=== PATIENT | male | born 1945 | race Caucasian/White ===

== ENCOUNTER 2019-10-08 11:29 | Emergency (ER) | payer MEDICARE ==
--- NOTE | 2019-10-08 11:35 | ERPHSYRPT ---
- History of Present Illness Time Seen by Provider: 10/08/19 11:35 Source: patient, family Exam Limitations: no limitations Physician History: 74 y/o white male, with h/o cabg 8 years ago in [place], presents with approx 1 week h/o soa. worse last 2 days. last pm noticed heart racing. worse this am. pt denies cp, denies n/v/d. pt denies abd pain. pts rn urology is dr. cardenas. Timing/Duration: week(s) Activities at Onset: none Severity of Dyspnea-Max: moderate Severity of Dyspnea-Current: moderate Possible Cause: no prior episodes Associated Symptoms: No chest pain/discomfort International travel in last 2 weeks: No Allergies/Adverse Reactions: Sulfa (Sulfonamide Antibiotics) Allergy (Verified 10/08/19 11:40) - Review of Systems Constitutional: Weakness Eyes: No Symptoms Ears, Nose, & Throat: No Symptoms Respiratory: Dyspnea, No Stridor, No Wheezing Cardiac: No Symptoms, No Chest Pain, No Palpitations, No Syncope Abdominal/Gastrointestinal: No Symptoms Genitourinary Symptoms: No Symptoms Musculoskeletal: No Symptoms Skin: No Symptoms Neurological: No Symptoms Psychological: No Symptoms Endocrine: No Symptoms Hematologic/Lymphatic: No Symptoms Immunological/Allergic: No Symptoms All Other Systems: Reviewed and Negative - Past Medical History Neurological History: No Pertinent History ENT History: No Pertinent History Cardiac History: No Pertinent History Respiratory History: No Pertinent History Endocrine Medical History: No Pertinent History Musculoskeletal History: No Pertinent History GI Medical History: No Pertinent History History: No Pertinent History Psycho-Social History: No Pertinent History Male Reproductive Disorders: No Pertinent History - Past Surgical History Neuro Surgical History: No Pertinent History Cardiac: No Pertinent History Respiratory: No Pertinent History Gastrointestinal: No Pertinent History Genitourinary: No Pertinent History Male Surgical History: No Pertinent History - Nursing Vital Signs Nursing Vital Signs: Initial Vital Signs Temperature 97.9 F 10/08/19 11:32 Pulse Rate 155 H 10/08/19 11:32 Respiratory Rate 16 10/08/19 11:32 Blood Pressure 139/95 10/08/19 11:32 O2 Sat by Pulse Oximetry 97 10/08/19 11:32 Pain Scale Pain Intensity 0 - Physical Exam General Appearance: mild distress, alert, anxiety Eye Exam: PERRL/EOMI, eyes nml inspection Ears, Nose, Throat Exam: hearing grossly normal, normal ENT inspection Neck Exam: normal inspection, non-tender, supple, full range of motion Respiratory Exam: normal breath sounds, lungs clear, airway intact, No chest tenderness, No respiratory distress Cardiovascular/Chest Exam: normal heart sounds, tachycardia Abdominal/Gastrointestinal Exam: soft, normal bowel sounds, No tenderness Rectal Exam: not done Extremity Exam: non-tender, normal range of motion, normal inspection Neurologic Exam: alert, oriented x 3, cooperative, alliance manager II-XII nml as tested Skin Exam: normal color, warm, dry Lymphatic Exam: No adenopathy SpO2 Interpretation: normal O2 Delivery: Room Air - Course Nursing assessment & vital signs reviewed: Yes EKG Interpreted by Me: RATE (155), Sinus Tach, NORMAL AXIS, NORMAL INTERVALS, NORMAL QRS, Other (no comparison) Ordered Tests: Active Orders 24 hr Category Date Time Status Slot Host STAT Care 10/08/19 11:39 Active EKG-ER Only STAT Care 10/08/19 11:37 Active IV Insertion STAT Care 10/08/19 11:37 Active Oxygen-ED Only Nasal Cannula 2 lpm Care 10/08/19 12:13 Active Pulse Oximetry (ED) STAT Care 10/08/19 11:37 Active CHEST 1 VIEW (PORTABLE) Stat Exams 10/08/19 11:38 Completed CHEST WITH CONTRAST [CT] Stat Exams 10/08/19 12:59 Completed CBC W DIFF Stat Lab 10/08/19 11:47 Completed CMP Stat Lab 10/08/19 11:47 Completed D-DIMER QUANTITATION Stat Lab 10/08/19 11:47 Completed NT PRO BNP Stat Lab 10/08/19 11:47 Completed PROTIME WITH INR Stat Lab 10/08/19 11:47 Completed TROPONIN Q3H Lab 10/08/19 11:47 Completed TROPONIN Q3H Lab 10/08/19 14:45 Ordered TROPONIN Q3H Lab 10/08/19 17:45 Ordered TROPONIN Q3H Lab 10/08/19 20:45 Ordered TROPONIN Q3H Lab 10/08/19 23:45 Ordered Medication Summary Generic Name Dose Route Start Last Admin Trade Name Freq PRN Reason Stop Dose Admin Diltiazem HCl 100 mls @ 5 mls/hr 10/08/19 12:04 10/08/19 12:08 Cardizem Drip 100 Mg/100 Ml D5w IV 11/07/19 12:03 10 mg/hr .Q20H PRN 10 mls/hr HEART RATE/ A-FIB Administration Protocol 5 MG/HR Sodium Chloride 1,000 mls @ 50 mls/hr 10/08/19 13:00 10/08/19 13:10 Sodium Chloride 0.9% 1000 Ml IV 11/07/19 12:59 50 mls/hr .Q20H BRAIN Administration Discontinued Medications Generic Name Dose Route Start Last Admin Trade Name Freq PRN Reason Stop Dose Admin Adenosine Confirm 10/08/19 11:45 Adenocard Iv 6 Mg/2 Ml Administered 10/08/19 11:46 Dose 6 mg IV .STK-MED ONE Adenosine Confirm 10/08/19 11:49 Adenocard Iv 6 Mg/2 Ml Administered 10/08/19 11:50 Dose 12 mg IV .STK-MED ONE Adenosine Confirm 10/08/19 11:51 Adenocard Iv 6 Mg/2 Ml Administered 10/08/19 11:52 Dose 12 mg IV .STK-MED ONE Adenosine 6 mg 10/08/19 11:54 10/08/19 11:58 Adenocard Iv 6 Mg/2 Ml IV 10/08/19 11:55 6 mg STAT ONE Administration Adenosine 12 mg 10/08/19 11:55 10/08/19 11:59 Adenocard Iv 6 Mg/2 Ml IV 10/08/19 11:56 12 mg STAT ONE Administration Adenosine 12 mg 10/08/19 11:55 10/08/19 11:59 Adenocard Iv 6 Mg/2 Ml IV 10/08/19 11:56 12 mg STAT ONE Administration Aspirin Confirm 10/08/19 11:40 Baby Aspirin 81 Mg Chew Administered 10/08/19 11:41 Dose 324 mg .ROUTE .STK-MED ONE Aspirin 243 mg 10/08/19 11:41 10/08/19 11:43 Baby Aspirin 81 Mg Chew PO 10/08/19 11:42 243 mg STAT ONE Administration Diltiazem HCl 25 mg 10/08/19 11:56 10/08/19 11:59 Cardizem Iv 50 Mg/10 Ml IV 10/08/19 11:57 25 mg STAT ONE Administration Diltiazem HCl Confirm 10/08/19 11:55 Cardizem Iv 50 Mg/10 Ml Administered 10/08/19 11:56 Dose 50 mg IV .STK-MED ONE Sodium Chloride Confirm 10/08/19 11:45 Sodium Chloride 0.9% 1000 Ml Administered 10/08/19 11:46 Dose 1,000 mls @ ud .ROUTE .STK-MED ONE Metoprolol Tartrate Confirm 10/08/19 11:37 Lopressor 5 Mg/5 Ml Injection Administered 10/08/19 11:38 Dose 5 mg IV .STK-MED ONE Metoprolol Tartrate 5 mg 10/08/19 11:37 10/08/19 11:42 Lopressor 5 Mg/5 Ml Injection IV 10/08/19 11:38 5 mg STAT ONE Administration Lab/Rad Data: Laboratory Result Diagrams 10/08/19 11:47 10/08/19 11:47 Laboratory Results 10/08/19 10/08/19 10/08/19 Range/Units 11:47 11:47 11:47 WBC (4.0-10.5) K/mm3 RBC (4.1-5.6) M/mm3 Hgb (12.5-18.0) gm/dl Hct (42-50) % MCV (78-100) fl MCH (26-32) pg MCHC (32-36) g/dl RDW (11.5-14.0) % Plt Count (150-450) K/mm3 MPV (6-9.5) fl Gran % (36.0-66.0) % Eos # (Auto) (0-0.5) Absolute Lymphs (auto) (1.0-4.6) Absolute Monos (auto) (0.0-1.3) Lymphocytes % (24.0-44.0) % Monocytes % (0.0-12.0) % Eosinophils % (0.00-5.0) % Basophils % (0.0-0.4) % Absolute Granulocytes (1.4-6.9) Basophils # (0-0.4) PT 13.9 H (8.83-12.87) SECONDS INR 1.23 (0.8-3.0) D-Dimer 652 H* (215-500) ng/mL Sodium 142 (137-145) mmol/L Potassium 4.6 (3.5-5.1) mmol/L Chloride 105 (98-107) mmol/L Carbon Dioxide 24 (22-30) mmol/L Anion Gap 17.3 H (5-15) MEQ/L BUN 24 H (9-20) mg/dL Creatinine 1.24 (0.66-1.25) mg/dL Estimated GFR > 60.0 ML/MIN Glucose 257 H (74-106) mg/dL Calcium 10.0 (8.4-10.2) mg/dL Total Bilirubin 0.70 (0.2-1.3) mg/dL AST 29 (17-59) U/L ALT 32 (0-50) U/L Alkaline Phosphatase 70 (38-126) U/L Troponin I 0.022 (0.000-0.034) ng/mL NT-Pro-B Natriuret Pep 1650 (0-1800) pg/mL Serum Total Protein 7.4 (6.3-8.2) g/dL Albumin 4.2 (3.5-5.0) g/dL 10/08/19 Range/Units 11:47 WBC 7.8 (4.0-10.5) K/mm3 RBC 4.76 (4.1-5.6) M/mm3 Hgb 13.8 (12.5-18.0) gm/dl Hct 43.5 (42-50) % MCV 91.4 (78-100) fl MCH 29.0 (26-32) pg MCHC 31.7 L (32-36) g/dl RDW 14.0 (11.5-14.0) % Plt Count 326 (150-450) K/mm3 MPV 9.4 (6-9.5) fl Gran % 65.2 (36.0-66.0) % Eos # (Auto) 0.09 (0-0.5) Absolute Lymphs (auto) 1.92 (1.0-4.6) Absolute Monos (auto) 0.66 (0.0-1.3) Lymphocytes % 24.8 (24.0-44.0) % Monocytes % 8.5 (0.0-12.0) % Eosinophils % 1.2 (0.00-5.0) % Basophils % 0.3 (0.0-0.4) % Absolute Granulocytes 5.06 (1.4-6.9) Basophils # 0.02 (0-0.4) PT (8.83-12.87) SECONDS INR (0.8-3.0) D-Dimer (215-500) ng/mL Sodium (137-145) mmol/L Potassium (3.5-5.1) mmol/L Chloride (98-107) mmol/L Carbon Dioxide (22-30) mmol/L Anion Gap (5-15) MEQ/L BUN (9-20) mg/dL Creatinine (0.66-1.25) mg/dL Estimated GFR ML/MIN Glucose (74-106) mg/dL Calcium (8.4-10.2) mg/dL Total Bilirubin (0.2-1.3) mg/dL AST (17-59) U/L ALT (0-50) U/L Alkaline Phosphatase (38-126) U/L Troponin I (0.000-0.034) ng/mL NT-Pro-B Natriuret Pep (0-1800) pg/mL Serum Total Protein (6.3-8.2) g/dL Albumin (3.5-5.0) g/dL - Progress Progress: improved Air Movement: good Progress Note: 10/08/19 12:12 pt given adenosine 6mg, 12mg then repeat 12mg iv. sl slowed hr to see underlying atrial flutter. cardizem 25mg iv followed by cardizem drip improved hr to 102. pt maintained a normal bp throughout. pt denies cp. soa improved. 10/08/19 14:35 spoke with pts rn urology, dr. cardenas. i reviewed pts hx, sx, lab and xray results. he and pt agree to transfer pt to [facility]. awaiting call back from transfer center Blood Culture(s) Obtained: No Antibiotics given: No Counseled pt/family regarding: lab results, diagnosis, need for follow-up, rad results - Departure Departure Disposition: Transfer Clinical Impression: Atrial flutter with rapid ventricular response Condition: Fair Critical Care Time: Yes Critical Care Time(excluding separately billable procedures): Critical 30-74 mins Referrals: MADELINE GARRISON [Primary Care Provider] -
[2019-10-08] MEDS ORDERED: LOPRESSOR 5 MG/5 ML INJECTION IV ONE ×2 (11:37)
[2019-10-08] MEDS ORDERED: BABY ASPIRIN 81 MG CHEW ONE (11:40)
[2019-10-08] MEDS ORDERED: BABY ASPIRIN 81 MG CHEW PO ONE (11:41)
[2019-10-08] MEDS ORDERED: Sodium Chloride 0.9% 1000 ML 1,000 ML ONE (11:45)
[2019-10-08] MEDS ORDERED: Adenocard IV 6 MG/2 ML IV ONE ×6 (11:45→11:55)
[2019-10-08 11:49] LABS: Absolute Neutrophil Ct (ANC) 5.06 (1.4-6.9); BASOPHIL % 0.3 % (0.0-0.4); Basophil (Absolute #) 0.02 (0-0.4); Eosinophil % 1.2 % (0.00-5.0); Eosinophil (Absolute #) 0.09 (0-0.5); Hematocrit 43.5 % (42-50); Hemoglobin 13.8 gm/dl (12.5-18.0); Lymphocyte (Absolute #) 1.92 (1.0-4.6); Lymphocytes % 24.8 % (24.0-44.0); Mean Cell Volume 91.4 fl (78-100); Mean Corpuscular Hgb Concent. 31.7 g/dl (32-36); Mean Platelet Volume 9.4 fl (6-9.5); Monocyte (Absolute #) 0.66 (0.0-1.3); Monocytes % 8.5 % (0.0-12.0); Neutrophil % 65.2 % (36.0-66.0); Platelet Count 326 K/mm3 (150-450); Red Blood Count 4.76 M/mm3 (4.1-5.6); White Blood Count 7.8 K/mm3 (4.0-10.5)
[2019-10-08] MEDS ORDERED: Cardizem IV 50 MG/10 ML IV ONE ×3 (11:55→15:18)
[2019-10-08 11:56] LABS: INR 1.23 (0.8-3.0); PROTIME 13.9 SECONDS (8.83-12.87)
[2019-10-08] MEDS ORDERED: CARDIZEM DRIP 100 MG/100 ML D5W 100 ML IV ONE (12:04)
[2019-10-08] MEDS ORDERED: CARDIZEM DRIP 100 MG/100 ML D5W 100 ML IV PRN (12:04)
[2019-10-08 12:09] LABS: ALBUMIN 4.2 g/dL (3.5-5.0); ALKALINE PHOSPHATASE 70 U/L (38-126); ANION GAP 17.3 MEQ/L (5-15); BLOOD UREA NITROGEN 24 mg/dL (9-20); CHLORIDE 105 mmol/L (98-107); Carbon Dioxide 24 mmol/L (22-30); Creatinine 1 1.24 mg/dL (0.66-1.25); Glucose 257 mg/dL (74-106); NT PRO BNP 1650 pg/mL (0-1800); Potassium 4.6 mmol/L (3.5-5.1); SGOT/AST 29 U/L (17-59); SGPT/ALT 32 U/L (0-50); SODIUM 142 mmol/L (137-145); Total Protein 7.4 g/dL (6.3-8.2)
--- NOTE | 2019-10-08 12:30 | XRAY ---
Indication: Tachycardia. Comparison: None Portable chest slightly underinflated with lingula infiltrate versus atelectasis. Remaining lungs clear. Heart borderline enlarged with CABG surgery. Bony thorax intact with mild degenerative changes. Impression: Lingula infiltrate/atelectasis. Correlate clinically.
[2019-10-08] MEDS ORDERED: Sodium Chloride 0.9% 1000 ML 1,000 ML IV SCH (13:00)
--- NOTE | 2019-10-08 14:30 | XRAY ---
Indication: Tachycardia, short of breath, and elevated d-dimer. History PE. Multiple contiguous axial images obtained through the chest using 80 cc Isovue 370 contrast and PE protocol. Comparison: None There is good opacification of the pulmonary arteries to include the lobar and segmental branches. No filling defect or pulmonary embolus. Heart is enlarged. Aorta is mildly atherosclerotic without aneurysm/dissection. A few tiny left suprahilar calcified nodes. No pathologic mediastinal/hilar lymphadenopathy. Lungs demonstrate diffuse interstitial edema with tiny peripheral centrilobular nodules, small bilateral pleural effusions, and mild bibasilar compressive atelectasis. Bony thorax intact with osteopenia, sternotomy wires, and flowing osteophytes throughout the spine favoring diffuse idiopathic skeletal hyperostosis (also known as DISH). Limited upper abdomen demonstrates calcified splenic granulomas. Impression: 1. Negative pulmonary embolus. 2. Cardiomegaly, interstitial edema, and bilateral pleural effusions. Rule out cardiac decompensation/fluid overload. 3. Incidental chronic findings including osteopenia, DISH, and evidence for old granulomatous disease. CT DI 13.22
[2019-10-08] MEDS ORDERED: ENOXAPARIN SODIUM SQ ONE ×2 (14:55→15:10)
[2019-10-08 15:12] VITALS: O2SAT 98
[2019-10-08 16:02] VITALS: BP 124/67; PULSE 101
== END 2019-10-08 16:02 | disposition short-term general hospital (02) ==
LOC: ED 11:29
DX: I48.92 Unspecified atrial flutter (principal); Z95.1 Presence of aortocoronary bypass graft; R53.1 Weakness
CPT/HCPCS: 36000; 36415; 71045; 71260; 80053; 83880; 84484; 85025; 85379; 85610; 93005; 93041; 94760; 96360; 96365; 96372; 96374; 96375; 96376; 99285; 99291; J0153; J1650; A9270-GY

== ENCOUNTER 2019-11-19 10:45 | Emergency (ER) | payer MEDICARE ==
--- NOTE | 2019-11-19 10:58 | ERPHSYRPT ---
- History of Present Illness Time Seen by Provider: 11/19/19 10:55 Historian: patient Exam Limitations: no limitations Physician History: patient is a 74-year-old male who presents with a complaint of anterior chest discomfort. He was transferred from this facility 21-year-old and ultimately to for an ablation for atrial fib recently. He denies any shortness of breath nausea vomiting or diaphoresis he does complain of generalized weakness especially while he was in the shower he had to sit on the commode to dry off because he didn't feel his legs would hold them. He has had an [place] in the remote past and has had a CABG x2. He is followed by Dr. Rick Beaulieu at the [facility]. Timing/Duration: yesterday Activities at Onset: none Quality: dullness, fullness, pressure Location: substernal Chest Pain Radiation: no radiation Severity of Pain-Max: mild Severity of Pain-Current: mild Modifying Factors: Improves With: nothing Associated Symptoms: weakness Prior Chest Pain/Cardiac Workup: cardiac cath, heart attack Nitro Today/Relief: no nitro taken today Aspirin Treatment Today: 81 mg x 1 ( no) Allergies/Adverse Reactions: Sulfa (Sulfonamide Antibiotics) Allergy (Verified 11/19/19 10:49) Home Medications: Allopurinol 100 mg [Zyloprim 100 mg] 100 mg PO DAILY 10/08/19 [History] Aspirin [Lamar Aspirin EC] 81 mg PO DAILY 10/08/19 [History] Metformin HCl 1,000 mg PO BID 10/08/19 [History] Metoprolol Tartrate 12.5 mg PO DAILY 10/08/19 [History] Omeprazole 20 mg PO DAILY 10/08/19 [History] Simvastatin 40 mg PO DAILY 10/08/19 [History] glipiZIDE [Glipizide] 10 mg PO BID 10/08/19 [History] lisinopriL [Zestril] 1.25 mg PO DAILY 10/08/19 [History] Hx Tetanus, Diphtheria Vaccination/Date Given: No Hx Influenza Vaccination/Date Given: Yes Hx Pneumococcal Vaccination/Date Given: Yes - Review of Systems Constitutional: Weakness, No Fever, No Chills Eyes: No Symptoms Ears, Nose, & Throat: No Symptoms Respiratory: No Cough, No Dyspnea Cardiac: Chest Pain, No Edema, No Syncope Abdominal/Gastrointestinal: No Abdominal Pain, No Nausea, No Vomiting, No Diarrhea Genitourinary Symptoms: No Dysuria Musculoskeletal: No Back Pain, No Neck Pain Skin: No Rash Neurological: No Dizziness, No Focal Weakness, No Sensory Changes Psychological: No Symptoms Endocrine: No Symptoms All Other Systems: Reviewed and Negative - Past Medical History Pertinent Past Medical History: Yes Neurological History: No Pertinent History ENT History: No Pertinent History Cardiac History: No Pertinent History Respiratory History: No Pertinent History Endocrine Medical History: No Pertinent History Musculoskeletal History: No Pertinent History GI Medical History: No Pertinent History History: No Pertinent History Psycho-Social History: No Pertinent History Male Reproductive Disorders: No Pertinent History - Past Surgical History Past Surgical History: Yes Neuro Surgical History: No Pertinent History Cardiac: No Pertinent History Respiratory: No Pertinent History Gastrointestinal: No Pertinent History Genitourinary: No Pertinent History Male Surgical History: No Pertinent History - Social History Smoking Status: Former smoker Exposure to second hand smoke: No Drug Use: none Patient Lives Alone: No - Nursing Vital Signs Nursing Vital Signs: Initial Vital Signs Pulse Rate 73 11/19/19 10:51 Respiratory Rate 16 11/19/19 10:51 Blood Pressure 159/68 11/19/19 10:51 O2 Sat by Pulse Oximetry 100 11/19/19 10:51 Pain Scale Pain Intensity 0 - Physical Exam General Appearance: no apparent distress ( using a using 1 is to or), alert Eye Exam: PERRL/EOMI, eyes nml inspection Ears, Nose, Throat Exam: normal ENT inspection, moist mucous membranes Neck Exam: normal inspection, non-tender, supple, full range of motion Respiratory Exam: normal breath sounds, lungs clear, No respiratory distress Cardiovascular Exam: regular rate/rhythm, normal heart sounds Gastrointestinal/Abdomen Exam: soft, No tenderness, No mass Back Exam: normal inspection, No CVA tenderness, No vertebral tenderness Extremity Exam: normal inspection, normal range of motion Neurologic Exam: alert, oriented x 3, cooperative, normal mood/affect, sensation nml, No motor deficits Skin Exam: normal color, warm, dry SpO2 Interpretation: normal O2 Delivery: Room Air - Course Nursing assessment & vital signs reviewed: Yes EKG Interpreted by Me: RATE (and in and), Sinus Rhythm, Non-specific ST Changes - Radiology Exams Chest X-ray Interpretation: Negative Ordered Tests: Active Orders 24 hr Category Date Time Status Contract Preparer STAT Care 11/19/19 10:55 Active EKG-ER Only STAT Care 11/19/19 10:54 Active IV Insertion STAT Care 11/19/19 10:54 Active CHEST 1 VIEW (PORTABLE) Stat Exams 11/19/19 10:55 Completed AMYLASE Stat Lab 11/19/19 11:00 Completed CBC W DIFF Stat Lab 11/19/19 11:00 Completed CMP Stat Lab 11/19/19 11:00 Completed D-DIMER QUANTITATIVE Stat Lab 11/19/19 11:00 Completed Erythrocyte Sedimentation Rate Stat Lab 11/19/19 11:00 Completed LIPASE Stat Lab 11/19/19 11:00 Completed Lactic Acid Stat Lab 11/19/19 11:55 Completed Lactic Acid Stat Lab 11/19/19 14:02 Ordered MAGNESIUM Stat Lab 11/19/19 11:00 Completed NT PRO BNP Stat Lab 11/19/19 11:00 Completed PROTIME WITH INR Stat Lab 11/19/19 11:00 Completed TROPONIN Q3H Lab 11/19/19 11:00 Completed TROPONIN Q3H Lab 11/19/19 13:30 Completed TROPONIN Q3H Lab 11/19/19 17:00 Ordered TROPONIN Q3H Lab 11/19/19 20:00 Ordered TROPONIN Q3H Lab 11/19/19 23:00 Ordered UA W/RFX UR CULTURE Stat Lab 11/19/19 11:50 Completed Medication Summary Generic Name Dose Route Start Last Admin Trade Name Freq PRN Reason Stop Dose Admin Sodium Chloride 1,000 mls @ 50 mls/hr 11/19/19 11:00 11/19/19 11:15 Sodium Chloride 0.9% 1000 Ml IV 12/19/19 10:59 50 mls/hr .Q20H BRAIN Administration Lab/Rad Data: Laboratory Result Diagrams 11/19/19 11:00 11/19/19 11:00 Laboratory Results 11/19/19 11/19/19 11/19/19 Range/Units 13:30 11:55 11:50 WBC (4.0-10.5) K/mm3 RBC (4.1-5.6) M/mm3 Hgb (12.5-18.0) gm/dl Hct (42-50) % MCV (78-100) fl MCH (26-32) pg MCHC (32-36) g/dl RDW (11.5-14.0) % Plt Count (150-450) K/mm3 MPV (7.5-11.0) fl Gran % (36.0-66.0) % Eos # (Auto) (0-0.5) Absolute Lymphs (auto) (1.0-4.6) Absolute Monos (auto) (0.0-1.3) Lymphocytes % (24.0-44.0) % Monocytes % (0.0-12.0) % Eosinophils % (0.00-5.0) % Basophils % (0.0-0.4) % Absolute Granulocytes (1.4-6.9) Basophils # (0-0.4) ESR (0-15) mm/hr PT (8.83-12.87) SECONDS INR (0.8-3.0) D-Dimer (215-500) ng/mL Sodium (137-145) mmol/L Potassium (3.5-5.1) mmol/L Chloride (98-107) mmol/L Carbon Dioxide (22-30) mmol/L Anion Gap (5-15) MEQ/L BUN (9-20) mg/dL Creatinine (0.66-1.25) mg/dL Estimated GFR ML/MIN Glucose (74-106) mg/dL Lactic Acid 2.2 H (0.4-2.0) Calcium (8.4-10.2) mg/dL Magnesium (1.6-2.3) mg/dL Total Bilirubin (0.2-1.3) mg/dL AST (17-59) U/L ALT (0-50) U/L Alkaline Phosphatase (38-126) U/L Troponin I 0.012 (0.000-0.034) ng/mL NT-Pro-B Natriuret Pep (0-1800) pg/mL Serum Total Protein (6.3-8.2) g/dL Albumin (3.5-5.0) g/dL Amylase (30-110) U/L Lipase (23-300) U/L Urine Color YELLOW (YELLOW) Urine Appearance CLEAR (CLEAR) Urine pH 5.0 (5-6) Ur Specific [place] 1.011 (1.005-1.025) Urine Protein NEGATIVE (Negative) Urine Ketones NEGATIVE (NEGATIVE) Urine Blood NEGATIVE (0-5) Deon/ul Urine Nitrite NEGATIVE (NEGATIVE) Urine Bilirubin NEGATIVE (NEGATIVE) Urine Urobilinogen NEGATIVE (0-1) mg/dL Ur Leukocyte Esterase NEGATIVE (NEGATIVE) Urine WBC (Auto) NONE (0-5) /HPF Urine RBC (Auto) NONE (0-2) /HPF U Epithel Cells (Auto) NONE (FEW) /HPF Urine Bacteria (Auto) NONE (NEGATIVE) /HPF Urine Mucus (Auto) SLIGHT (NEGATIVE) /HPF Urine Culture Reflexed NO (NO) Urine Glucose 150 (NEGATIVE) mg/dL 11/19/19 11/19/19 11/19/19 Range/Units 11:00 11:00 11:00 WBC (4.0-10.5) K/mm3 RBC (4.1-5.6) M/mm3 Hgb (12.5-18.0) gm/dl Hct (42-50) % MCV (78-100) fl MCH (26-32) pg MCHC (32-36) g/dl RDW (11.5-14.0) % Plt Count (150-450) K/mm3 MPV (7.5-11.0) fl Gran % (36.0-66.0) % Eos # (Auto) (0-0.5) Absolute Lymphs (auto) (1.0-4.6) Absolute Monos (auto) (0.0-1.3) Lymphocytes % (24.0-44.0) % Monocytes % (0.0-12.0) % Eosinophils % (0.00-5.0) % Basophils % (0.0-0.4) % Absolute Granulocytes (1.4-6.9) Basophils # (0-0.4) ESR (0-15) mm/hr PT 22.4 H (8.83-12.87) SECONDS INR 1.96 (0.8-3.0) D-Dimer < 215 L (215-500) ng/mL Sodium 137 (137-145) mmol/L Potassium 4.9 (3.5-5.1) mmol/L Chloride 101 (98-107) mmol/L Carbon Dioxide 25 (22-30) mmol/L Anion Gap 15.8 H (5-15) MEQ/L BUN 42 H (9-20) mg/dL Creatinine 1.94 H (0.66-1.25) mg/dL Estimated GFR 36.0 ML/MIN Glucose 259 H (74-106) mg/dL Lactic Acid (0.4-2.0) Calcium 10.3 H (8.4-10.2) mg/dL Magnesium 1.7 (1.6-2.3) mg/dL Total Bilirubin 0.60 (0.2-1.3) mg/dL AST 29 (17-59) U/L ALT 32 (0-50) U/L Alkaline Phosphatase 80 (38-126) U/L Troponin I 0.014 (0.000-0.034) ng/mL NT-Pro-B Natriuret Pep 336 (0-1800) pg/mL Serum Total Protein 7.7 (6.3-8.2) g/dL Albumin 4.5 (3.5-5.0) g/dL Amylase 85 (30-110) U/L Lipase 268 (23-300) U/L Urine Color (YELLOW) Urine Appearance (CLEAR) Urine pH (5-6) Ur Specific [place] (1.005-1.025) Urine Protein (Negative) Urine Ketones (NEGATIVE) Urine Blood (0-5) Deon/ul Urine Nitrite (NEGATIVE) Urine Bilirubin (NEGATIVE) Urine Urobilinogen (0-1) mg/dL Ur Leukocyte Esterase (NEGATIVE) Urine WBC (Auto) (0-5) /HPF Urine RBC (Auto) (0-2) /HPF U Epithel Cells (Auto) (FEW) /HPF Urine Bacteria (Auto) (NEGATIVE) /HPF Urine Mucus (Auto) (NEGATIVE) /HPF Urine Culture Reflexed (NO) Urine Glucose (NEGATIVE) mg/dL 11/19/19 Range/Units 11:00 WBC 8.3 (4.0-10.5) K/mm3 RBC 4.17 (4.1-5.6) M/mm3 Hgb 11.9 L (12.5-18.0) gm/dl Hct 37.3 L (42-50) % MCV 89.4 (78-100) fl MCH 28.5 (26-32) pg MCHC 31.9 L (32-36) g/dl RDW 14.0 (11.5-14.0) % Plt Count 235 (150-450) K/mm3 MPV 9.8 (7.5-11.0) fl Gran % 63.4 (36.0-66.0) % Eos # (Auto) 0.15 (0-0.5) Absolute Lymphs (auto) 2.31 (1.0-4.6) Absolute Monos (auto) 0.56 (0.0-1.3) Lymphocytes % 27.7 (24.0-44.0) % Monocytes % 6.7 (0.0-12.0) % Eosinophils % 1.8 (0.00-5.0) % Basophils % 0.4 (0.0-0.4) % Absolute Granulocytes 5.29 (1.4-6.9) Basophils # 0.03 (0-0.4) ESR 17 H (0-15) mm/hr PT (8.83-12.87) SECONDS INR (0.8-3.0) D-Dimer (215-500) ng/mL Sodium (137-145) mmol/L Potassium (3.5-5.1) mmol/L Chloride (98-107) mmol/L Carbon Dioxide (22-30) mmol/L Anion Gap (5-15) MEQ/L BUN (9-20) mg/dL Creatinine (0.66-1.25) mg/dL Estimated GFR ML/MIN Glucose (74-106) mg/dL Lactic Acid (0.4-2.0) Calcium (8.4-10.2) mg/dL Magnesium (1.6-2.3) mg/dL Total Bilirubin (0.2-1.3) mg/dL AST (17-59) U/L ALT (0-50) U/L Alkaline Phosphatase (38-126) U/L Troponin I (0.000-0.034) ng/mL NT-Pro-B Natriuret Pep (0-1800) pg/mL Serum Total Protein (6.3-8.2) g/dL Albumin (3.5-5.0) g/dL Amylase (30-110) U/L Lipase (23-300) U/L Urine Color (YELLOW) Urine Appearance (CLEAR) Urine pH (5-6) Ur Specific [place] (1.005-1.025) Urine Protein (Negative) Urine Ketones (NEGATIVE) Urine Blood (0-5) Deon/ul Urine Nitrite (NEGATIVE) Urine Bilirubin (NEGATIVE) Urine Urobilinogen (0-1) mg/dL Ur Leukocyte Esterase (NEGATIVE) Urine WBC (Auto) (0-5) /HPF Urine RBC (Auto) (0-2) /HPF U Epithel Cells (Auto) (FEW) /HPF Urine Bacteria (Auto) (NEGATIVE) /HPF Urine Mucus (Auto) (NEGATIVE) /HPF Urine Culture Reflexed (NO) Urine Glucose (NEGATIVE) mg/dL - Progress Progress: improved Air Movement: good Progress Note: 11/19/19 14:11 we did discuss the case with his coffee brewer Dr. Palmer and the decision was made to switch her from metoprolol tartrate to metoprolol succinate one dose 25 mg daily and to stop his lisinopril. Blood Culture(s) Obtained: No Antibiotics given: No - Departure Departure Disposition: Home Clinical Impression: Chest pain Condition: Good Critical Care Time: No Referrals: MADELINE GARRISON [Primary Care Provider] - Prescriptions: Metoprolol Succinate 25 mg Xl* [Toprol-Xl 25MG Tablets] 25 mg PO DAILY 30 Days #30 tab
[2019-11-19] MEDS ORDERED: Sodium Chloride 0.9% 1000 ML 1,000 ML IV SCH (11:00)
[2019-11-19 11:04] LABS: Absolute Neutrophil Ct (ANC) 5.29 (1.4-6.9); BASOPHIL % 0.4 % (0.0-0.4); Basophil (Absolute #) 0.03 (0-0.4); Eosinophil % 1.8 % (0.00-5.0); Eosinophil (Absolute #) 0.15 (0-0.5); Hematocrit 37.3 % (42-50); Hemoglobin 11.9 gm/dl (12.5-18.0); INR 1.96 (0.8-3.0); Lymphocyte (Absolute #) 2.31 (1.0-4.6); Lymphocytes % 27.7 % (24.0-44.0); Mean Cell Volume 89.4 fl (78-100); Mean Corpuscular Hemoglobin 28.5 pg (26-32); Mean Corpuscular Hgb Concent. 31.9 g/dl (32-36); Mean Platelet Volume 9.8 fl (7.5-11.0); Monocyte (Absolute #) 0.56 (0.0-1.3); Monocytes % 6.7 % (0.0-12.0); Neutrophil % 63.4 % (36.0-66.0); PROTIME 22.4 SECONDS (8.83-12.87); Platelet Count 235 K/mm3 (150-450); Red Blood Count 4.17 M/mm3 (4.1-5.6); White Blood Count 8.3 K/mm3 (4.0-10.5)
[2019-11-19] MEDS ORDERED: Sodium Chloride 0.9% 1000 ML 1,000 ML ONE (11:13)
[2019-11-19 11:18] LABS: ALBUMIN 4.5 g/dL (3.5-5.0); ANION GAP 15.8 MEQ/L (5-15); BILIRUBIN,TOTAL 0.6 mg/dL (0.2-1.3); Calcium 10.3 mg/dL (8.4-10.2); Creatinine 1 1.94 mg/dL (0.66-1.25); MAGNESIUM 1.7 mg/dL (1.6-2.3); Potassium 4.9 mmol/L (3.5-5.1); Total Protein 7.7 g/dL (6.3-8.2)
[2019-11-19 11:24] LABS: D-DIMER QUANTITATIVE < 215 ng/mL (215-500); Erythrocyte Sedimentation Rate 17 mm/hr (0-15)
--- NOTE | 2019-11-19 11:25 | XRAY ---
Indication: Chest pain. Comparison: October 08, 2019. Portable chest is now clear again with a few tiny calcified granulomas. Heart is not enlarged again with CABG surgery. Bony thorax intact again with mild osteopenia and degenerative changes. Impression: Nonacute chest with chronic features.
[2019-11-19 12:00] LABS: Appearance CLEAR (CLEAR); Bilirubin NEGATIVE (NEGATIVE); Blood NEGATIVE Ery/ul (0-5); Glucose 150 mg/dL (NEGATIVE); Ketones NEGATIVE (NEGATIVE); Leukocyte Esterase NEGATIVE (NEGATIVE); Mucus SLIGHT /HPF (NEGATIVE); Nitrite NEGATIVE (NEGATIVE); Protein,Urine Dip NEGATIVE (Negative); Specific Gravity 1.011 (1.005-1.025); Urobilinogen NEGATIVE mg/dL (0-1)
[2019-11-19 12:02] LABS: Lactic Acid 2.2 (0.4-2.0)
[2019-11-19 14:11] VITALS: BP 102/46; PULSE 61; O2SAT 98
== END 2019-11-19 14:29 | disposition home or self-care (01) ==
LOC: ED 10:45
DX: R07.9 Chest pain, unspecified (principal)
CPT/HCPCS: 36000; 36415; 71045; 80053; 81001; 82150; 83605; 83690; 83735; 83880; 84484; 85025; 85379; 85610; 85652; 93005; 93041; 99284

== ENCOUNTER 2019-12-25 05:47 | Day surgery (SDC) | payer MEDICARE ==
[2019-12-25] MEDS ORDERED: Lactated Ringers 1,000 ML IV SCH (06:30)
[2019-12-25 06:58] VITALS: O2SAT 100
[2019-12-25] MEDS ORDERED: DIPRIVAN 200 MG/20 ML IV ONE ×3 (07:30→08:19)
[2019-12-25] MEDS ORDERED: Ketamine HCl 50 MG/ML ONE (07:31)
[2019-12-25 09:20] LABS: Absolute Neutrophil Ct (ANC) 2.67 (1.4-6.9); BASOPHIL % 0.5 % (0.0-0.4); Basophil (Absolute #) 0.02 (0-0.4); Eosinophil (Absolute #) 0.08 (0-0.5); Hematocrit 21.7 % (42-50); Lymphocyte (Absolute #) 0.95 (1.0-4.6); Lymphocytes % 23.3 % (24.0-44.0); Mean Cell Volume 82.5 fl (78-100); Mean Corpuscular Hemoglobin 24.7 pg (26-32); Mean Platelet Volume 9.7 fl (7.5-11.0); Monocyte (Absolute #) 0.35 (0.0-1.3); Monocytes % 8.6 % (0.0-12.0); Neutrophil % 65.6 % (36.0-66.0); Platelet Count 219 K/mm3 (150-450); Red Blood Count 2.63 M/mm3 (4.1-5.6); Red Cell Distribution Width 14.7 % (11.5-14.0); White Blood Count 4.1 K/mm3 (4.0-10.5)
[2019-12-25 09:32] LABS: Hemoglobin 6.5 gm/dl (12.5-18.0)
[2019-12-25 09:46] VITALS: PULSE 62
[2019-12-25 09:48] VITALS: BP 129/60
--- NOTE | 2019-12-25 14:25 | OP ---
SURGERY DATE/TIME: 12/25/2019 0735 PREOPERATIVE DIAGNOSIS: Anemia. POSTOPERATIVE DIAGNOSES: 1) Normal EGD. 2) Diverticulosis. 3) Poor bowel prep. PROCEDURES: 1) EGD. 2) Colonoscopy. SURGEON: Jake Lam M.D. ANESTHESIA: MAC by Sushil Bills CRNA. ESTIMATED BLOOD LOSS: None. SPECIMENS: None. DESCRIPTION OF PROCEDURE: After informed written consent was obtained, the patient was taken to the endoscopy suite. Bite block inserted and he underwent monitored anesthesia. The endoscope was inserted in the posterior oropharynx and under direct visualization the esophagus was traversed. The esophageal mucosa had a normal appearance. The gastroesophageal junction likewise was normal. The stomach had a normal rugated gastric mucosa free of any lesion or defects. The pylorus traversed and the first and second portions of the duodenum were within normal limits. Upon withdrawal again no mucosal structure appeared unremarkable with no evidence of bleeding or ulceration. The scope was removed and the scopes were switched. Digital rectal exam showed normal sphincter tone and no internal lesions. The scope was inserted in the rectum and sequentially the entire colonic mucosa was traversed. The colon did exhibit extensive diverticulosis mostly in the sigmoid but throughout the length of the colon with significant amount of liquidy stool throughout the entire length. The level of cecum was visualized. There was some difficulty reaching the last few inches of his colon with flipping and manipulating, etc., but I felt as though I could see down to the level of the cecum visually with no obvious bleeding or large lesions, etc. Therefore the decision was made to start withdrawal at that time. Again, diffuse diverticulosis was noted throughout. No blood was encountered or active bleeding. No large lesions but again the bowel prep was poor and I did make his aware of that. There was chance of missed lesions secondary to this. Small polyps, etc. could easily be missed due to the poor prep but in any event retroflexion is performed prior to withdrawal and showed no obvious internal lesions. The scope is removed and the patient was transferred to the recovery room in good condition.
== END 2019-12-25 09:52 | disposition home or self-care (01) ==
LOC: SDC 05:47
PROVIDERS: ATTEND Family Medicine
DX: D64.9 Anemia, unspecified (principal); K57.30 Diverticulosis of large intestine without perforation or abscess without bleeding; E11.9 Type 2 diabetes mellitus without complications; I10 Essential (primary) hypertension; E78.5 Hyperlipidemia, unspecified
CPT/HCPCS: 36415; 43235; 82962; 85025; G0121; 99100; J2704

== ENCOUNTER 2019-12-25 10:54 | Observation (INO) | payer MEDICARE ==
[2019-12-25] MEDS ORDERED: NovoLOG Insulin SQ PRN (12:00)
[2019-12-25] MEDS ORDERED: Sodium Chloride 0.9% 1000 ML 1,000 ML IV SCH (12:00)
[2019-12-25 14:51] LABS: ABO TYPING A; Antibody Screen NEGATIVE (NEGATIVE); RH TYPING POSITIVE
[2019-12-25 14:53] LABS: CROSS MATCH (PRBC) COMPATIBLE (COMPATIBLE)
[2019-12-25] MEDS ORDERED: Glucophage 500 MG PO SCH (17:00)
[2019-12-25] MEDS: Glucotrol 5 MG PO SCH (17:29)
[2019-12-25 21:16] LABS: Hematocrit 32.3 % (42-50); Mean Cell Volume 83.5 fl (78-100); Mean Corpuscular Hemoglobin 25.8 pg (26-32); Mean Platelet Volume 9.6 fl (7.5-11.0); Platelet Count 250 K/mm3 (150-450); Red Blood Count 3.87 M/mm3 (4.1-5.6); Red Cell Distribution Width 14.8 % (11.5-14.0)
[2019-12-25] MEDS ORDERED: METFORMIN HCL 1500 MG PO SCH (22:00)
[2019-12-26] MEDS: Glucotrol 5 MG PO SCH (07:51)
[2019-12-26 07:57] VITALS: BP 127/59; PULSE 73; O2SAT 97
[2019-12-26] MEDS ORDERED: Glucophage 500 MG PO SCH ×2 (08:00→17:00)
--- NOTE | 2019-12-26 09:09 | PCM.SSS ---
History of Present Illness - Chief Complaint Chief Complaint: ANEMIA History of Present Illness: is a 74 year old male pt of mine from [facility] with DM II, CAD, renal insufficiency, and HTN who came in yesterday for blood transfusion. He was found to have anemia within the past month or two by a specialist; was supposed to start on iron but didn't want to start it prior to his colonoscopy and EGD ( which Dr. Lam did recently, with no findings). Pt denies blood in stool or black tarry stool. Hgb was 6.4 yesterday; up to 10 this morning after 2 units PRBC. Pt to be discharged to home today. Recheck hgb on Monday by (4d from now). - Review of Systems Constitutional: Weakness Hematologic/Lymphatic: Anemia All Other Systems: Reviewed and Negative Medications & Allergies Home Medications: Home Medication List Allopurinol 100 mg [Zyloprim 100 mg] 100 mg PO DAILY 10/08/19 [History Confirmed 12/25/19] Aspirin [Fountain Aspirin EC] 81 mg PO DAILY 10/08/19 [History Confirmed 12/25] Metformin HCl 1,500 mg PO BID 10/08/19 [History Confirmed 12/25/19] Omeprazole 20 mg PO DAILY 10/08/19 [History Confirmed 12/25/19] Simvastatin 20 mg PO DAILY 10/08/19 [History Confirmed 12/25/19] glipiZIDE [Glipizide] 10 mg PO BID 10/08/19 [History Confirmed 12/25/19] Amiodarone HCl [Pacerone] 200 mg PO DAILY 12/18/19 [History Confirmed 12/25/19] Apixaban [Eliquis] 5 mg PO DAILY 12/18/19 [History Confirmed 12/25/19] Metoprolol Succinate 25 mg Xl* [Toprol-Xl 25MG Tablets] 37.5 mg PO DAILY 04/01 [History Confirmed 12/25/19] Allergies/Adverse Reactions: Allergies Allergy/AdvReac Type Severity Reaction Status Date / Time Sulfa (Sulfonamide Allergy Mild Verified 12/25/19 12:20 Antibiotics) - Past Medical History Past Medical History: Yes Neurological History: No Pertinent History ENT History: No Pertinent History Cardiac History: Arrhythmia Respiratory History: No Pertinent History Endocrine Medical History: Diabetes Type II Musculoskelatal History: Arthritis GI Medical History: No Pertinent History History: Renal Disease Pyscho-Social History: No Pertinent History Male Reproductive Disorders: No Pertinent History - Past Surgical History Past Surgical History: Yes Neuro Surgical History: No Pertinent History Cardiac History: CABG Respiratory Surgery: No Pertinent History GI Surgical History: Appendectomy Genitourinary Surgical Hx: No Pertinent History Musculskeletal Surgical Hx: No Pertinent History Male Surgical History: No Pertinent History Other Surgical History: cardiac ablation oct 2019, cabg 2000, cataract sedrick. IOL , colonoscopy and egd - Social History Smoking Status: Never smoker Exposure to second hand smoke: No Alcohol: None Drug Use: none - Physical Exam Vital Signs: Vital Signs - 24 hr Temp Pulse Resp BP Pulse Ox 12/26/19 07:56 97.7 F 73 18 127/59 97 12/26/19 04:00 98.1 F 80 18 134/61 98 12/26/19 00:00 97.5 F 79 19 146/66 97 12/25/19 20:00 98.9 F 74 18 157/69 98 12/25/19 16:00 97.5 F 75 18 150/68 99 12/25/19 12:42 98.3 F 94 H 18 159/68 99 12/25/19 11:54 98.3 F 94 H 18 159/68 99 General Appearance: no apparent distress, alert Neurologic Exam: oriented x 3, cooperative Eye Exam: eyes nml inspection Ears, Nose, Throat Exam: moist mucous membranes Respiratory Exam: normal breath sounds, lungs clear, No crackles/rales, No rhonchi, No wheezing Cardiovascular Exam: regular rate/rhythm, normal heart sounds, No murmur Gastrointestinal/Abdomen Exam: soft, normal bowel sounds, No tenderness, No distention, No mass, No guarding, No rebound Back Exam: normal inspection, No rash Extremity Exam: normal inspection, No pedal edema, No swelling Skin Exam: normal color, warm, dry, No rash Results - Labs Lab/Micro Results: Accuchecks Date 12/25/19 Time 21:00 Accucheck Value: 137 Accucheck Value: 82 Accucheck Value: 214 Lab Results-Last 24 Hours 12/25/19 12/25/19 12/25/19 Range/Units 08:45 12:45 12:45 WBC (4.0-10.5) K/mm3 RBC (4.1-5.6) M/mm3 Hgb (12.5-18.0) gm/dl Hct (42-50) % MCV (78-100) fl MCH (26-32) pg MCHC (32-36) g/dl RDW (11.5-14.0) % Plt Count (150-450) K/mm3 MPV (7.5-11.0) fl Hemoglobin A1c 7.24 H (4.5-6.0) % ABO Group A Rh Factor POSITIVE Antibody Screen NEGATIVE (NEGATIVE) Crossmatch COMPATIBLE COMPATIBLE (COMPATIBLE) 12/25/19 Range/Units 21:14 WBC 7.0 (4.0-10.5) K/mm3 RBC 3.87 L (4.1-5.6) M/mm3 Hgb 10.0 L D (12.5-18.0) gm/dl Hct 32.3 L (42-50) % MCV 83.5 (78-100) fl MCH 25.8 L (26-32) pg MCHC 31.0 L (32-36) g/dl RDW 14.8 H (11.5-14.0) % Plt Count 250 (150-450) K/mm3 MPV 9.6 (7.5-11.0) fl Hemoglobin A1c (4.5-6.0) % ABO Group Rh Factor Antibody Screen (NEGATIVE) Crossmatch (COMPATIBLE) Accuchecks Date 12/25/19 Time 21:00 Accucheck Value: 137 Accucheck Value: 82 Accucheck Value: 214 Assessment/Plan (1) Anemia Current Visit: Yes Status: Acute Qualifiers: Anemia type: iron deficiency Iron deficiency anemia type: unspecified iron deficiency Qualified Code(s): D50.9 - Iron deficiency anemia, unspecified Assessment & Plan: Unsure if small intestine issue vs hematology issue. Pt had a home stool test within the past 1 yr; will see what the results were and the exact date on that. Code(s): D64.9 - ANEMIA, UNSPECIFIED Hospital Summary - Hospital Course Hospital Course: is a 74 year old male pt of mine from [facility] with DM II, CAD, renal insufficiency, and HTN who came in yesterday for blood transfusion. He was found to have anemia within the past month or two by a specialist; was supposed to start on iron but didn't want to start it prior to his colonoscopy and EGD ( which Dr. Lam did recently, with no findings). Pt denies blood in stool or black tarry stool. Hgb was 6.4 yesterday; up to 10 this morning after 2 units PRBC. Pt to be discharged to home today. Recheck hgb on Monday by HH (4d from now). - Vitals & Intake/Output Vital Signs: Vital Signs Temperature 97.7 F 12/26/19 07:56 Pulse Rate 73 12/26/19 07:56 Respiratory Rate 18 12/26/19 07:56 Blood Pressure 127/59 12/26/19 07:56 O2 Sat by Pulse Oximetry 97 12/26/19 07:56 Intake & Output: Intake & Output 12/23/19 12/24/19 12/25/19 12/26/19 11:59 11:59 11:59 11:59 Intake Total 2024 Balance 2024 Weight 76 kg - Lab Result Diagrams: 12/25/19 21:14 Lab Results-Last 24 Hrs: Accuchecks Date 12/25/19 Time 21:00 Accucheck Value: 137 Accucheck Value: 82 Accucheck Value: 214 Lab Results-Last 24 Hours 12/25/19 12/25/19 12/25/19 Range/Units 08:45 12:45 12:45 WBC (4.0-10.5) K/mm3 RBC (4.1-5.6) M/mm3 Hgb (12.5-18.0) gm/dl Hct (42-50) % MCV (78-100) fl MCH (26-32) pg MCHC (32-36) g/dl RDW (11.5-14.0) % Plt Count (150-450) K/mm3 MPV (7.5-11.0) fl Hemoglobin A1c 7.24 H (4.5-6.0) % ABO Group A Rh Factor POSITIVE Antibody Screen NEGATIVE (NEGATIVE) Crossmatch COMPATIBLE COMPATIBLE (COMPATIBLE) 12/25/19 Range/Units 21:14 WBC 7.0 (4.0-10.5) K/mm3 RBC 3.87 L (4.1-5.6) M/mm3 Hgb 10.0 L D (12.5-18.0) gm/dl Hct 32.3 L (42-50) % MCV 83.5 (78-100) fl MCH 25.8 L (26-32) pg MCHC 31.0 L (32-36) g/dl RDW 14.8 H (11.5-14.0) % Plt Count 250 (150-450) K/mm3 MPV 9.6 (7.5-11.0) fl Hemoglobin A1c (4.5-6.0) % ABO Group Rh Factor Antibody Screen (NEGATIVE) Crossmatch (COMPATIBLE) Micro Results-Entire Visit: Accuchecks Date 12/25/19 Time 21:00 Accucheck Value: 137 Accucheck Value: 82 Accucheck Value: 214 - Discharge Disposition: Home, Self-Care Condition: Stable Prescriptions: No Action glipiZIDE [Glipizide] 10 mg PO BID Simvastatin 20 mg PO DAILY Omeprazole 20 mg PO DAILY Metformin HCl 1,500 mg PO BID Aspirin [Fountain Aspirin EC] 81 mg PO DAILY Allopurinol 100 mg [Zyloprim 100 mg] 100 mg PO DAILY Metoprolol Succinate 25 mg Xl* [Toprol-Xl 25MG Tablets] 37.5 mg PO DAILY Apixaban [Eliquis] 5 mg PO DAILY Amiodarone HCl [Pacerone] 200 mg PO DAILY Additional Instructions: Patient to have lab drawn on 12/30/19 for LIPIDS,CMP,CBC,A1C. If any blood in the stool, black tarry stool, passing out, extreme weakness, vomiting blood, or any other worrisome symptoms, call the ambulance and return to ER [facility]. Follow up with: MADELINE GARRISON [Primary Care Provider] - 01/02/20 11:00 am Forms: Outpatient Follow-up Labs/Proc
[2019-12-26] MEDS ORDERED: SIMVASTATIN 20 MG PO SCH (10:00)
[2019-12-26] MEDS ORDERED: ZOCOR 20MG PO SCH (10:00)
[2019-12-26] MEDS ORDERED: Toprol-Xl 25MG Tablets PO SCH (10:00)
[2019-12-26] MEDS ORDERED: Cordarone 200 MG PO SCH (10:00)
[2019-12-26] MEDS ORDERED: ZYLOPRIM 100 MG PO SCH (10:00)
[2019-12-26] MEDS ORDERED: Protonix 40MG Tablet PO SCH (10:00)
== END 2019-12-26 10:10 | disposition home or self-care (01) ==
LOC: MED SURG 11:48
PROVIDERS: ADMIT Family Medicine; ATTEND Family Medicine
DX: E11.9 Type 2 diabetes mellitus without complications (principal); Z79.4 Long term (current) use of insulin; N28.9 Disorder of kidney and ureter, unspecified; I25.810 Atherosclerosis of coronary artery bypass graft(s) without angina pectoris; I10 Essential (primary) hypertension; Z79.01 Long term (current) use of anticoagulants; Z79.899 Other long term (current) drug therapy
CPT/HCPCS: 36415; 82962; 83036; 85025; 85027; 86850; 86900; 86901; 86922; P9016; 36430; 99100; G0378; J2704; A9270-GY

== ENCOUNTER 2020-05-25 17:27 | Observation (INO) | payer MEDICARE ==
[2020-05-25] MEDS ORDERED: TYLENOL 325 MG PO PRN (20:02)
[2020-05-25] MEDS ORDERED: BENADRYL 25 MG CAPSULE PO PRN (20:02)
[2020-05-25] MEDS: ELIQUIS 2.5 MG TABLET PO SCH (20:48)
[2020-05-25] MEDS: Glucotrol 5 MG PO SCH (20:49)
[2020-05-25 20:52] LABS: Absolute Neutrophil Ct (ANC) 3.86 (1.4-6.9); BASOPHIL % 0.3 % (0.0-0.4); Basophil (Absolute #) 0.02 (0-0.4); Eosinophil % 2.8 % (0.00-5.0); Eosinophil (Absolute #) 0.17 (0-0.5); Hematocrit 24.4 % (42-50); Hemoglobin 7.4 gm/dl (12.5-18.0); Lymphocyte (Absolute #) 1.57 (1.0-4.6); Lymphocytes % 25.7 % (24.0-44.0); Mean Cell Volume 100.8 fl (78-100); Mean Corpuscular Hemoglobin 30.6 pg (26-32); Mean Corpuscular Hgb Concent. 30.3 g/dl (32-36); Mean Platelet Volume 9.5 fl (7.5-11.0); Monocytes % 8.2 % (0.0-12.0); Platelet Count 207 K/mm3 (150-450); Red Blood Count 2.42 M/mm3 (4.1-5.6); White Blood Count 6.1 K/mm3 (4.0-10.5)
[2020-05-25 21:02] LABS: ALBUMIN 3.8 g/dL (3.5-5.0); ANION GAP 12.1 MEQ/L (5-15); BILIRUBIN,TOTAL 0.4 mg/dL (0.2-1.3); Calcium 9.2 mg/dL (8.4-10.2); Creatinine 1 1.63 mg/dL (0.66-1.25); Potassium 4.7 mmol/L (3.5-5.1); Total Protein 6.4 g/dL (6.3-8.2)
[2020-05-25 21:22] LABS: Appearance CLOUDY (CLEAR); Bacteria MODERATE /HPF (NEGATIVE); Bilirubin NEGATIVE (NEGATIVE); Blood SMALL Ery/ul (0-5); Crystals Unidentified 25-50 /HPF (NEGATIVE); Glucose 150 mg/dL (NEGATIVE); Granular Casts 0-2 /LPF (NEGATIVE); Hyaline Casts 0-2 /LPF (0-2); Ketones NEGATIVE (NEGATIVE); Leukocyte Esterase LARGE (NEGATIVE); Mucus SLIGHT /HPF (NEGATIVE); Nitrite POSITIVE (NEGATIVE); Protein,Urine Dip NEGATIVE (Negative); Specific Gravity 1.013 (1.005-1.025); Urobilinogen NEGATIVE mg/dL (0-1); WBC 51-100 /HPF (0-5)
[2020-05-25] MEDS ORDERED: Sodium Chloride 0.9% 500 ML 500 ML IV ONE (21:41)
[2020-05-25] MEDS ORDERED: ZOCOR 20MG PO SCH (22:00)
[2020-05-25] MEDS ORDERED: Glucophage 500 MG PO SCH (22:00)
[2020-05-25] MEDS ORDERED: ROCEPHIN 1 Gm-D5w 50 ml Bag** 1 G/50 ML IVPB IV SCH (22:00)
[2020-05-25] MEDS: NEURONTIN 300 MG PO SCH (22:04)
[2020-05-25 22:33] LABS: ABO TYPING A; Antibody Screen NEGATIVE (NEGATIVE); RH TYPING POSITIVE
[2020-05-25 22:34] LABS: CROSS MATCH (PRBC) COMPATIBLE (COMPATIBLE)
[2020-05-26 06:32] LABS: Absolute Neutrophil Ct (ANC) 3.49 (1.4-6.9); BASOPHIL % 0.2 % (0.0-0.4); Basophil (Absolute #) 0.01 (0-0.4); Eosinophil % 3.5 % (0.00-5.0); Hematocrit 27.2 % (42-50); Hemoglobin 8.6 gm/dl (12.5-18.0); Lymphocyte (Absolute #) 1.53 (1.0-4.6); Lymphocytes % 26.5 % (24.0-44.0); Mean Cell Volume 95.1 fl (78-100); Mean Corpuscular Hemoglobin 30.1 pg (26-32); Mean Corpuscular Hgb Concent. 31.6 g/dl (32-36); Mean Platelet Volume 9.2 fl (7.5-11.0); Monocyte (Absolute #) 0.55 (0.0-1.3); Monocytes % 9.5 % (0.0-12.0); Neutrophil % 60.3 % (36.0-66.0); Platelet Count 153 K/mm3 (150-450); Red Blood Count 2.86 M/mm3 (4.1-5.6); Red Cell Distribution Width 16.2 % (11.5-14.0); White Blood Count 5.8 K/mm3 (4.0-10.5)
[2020-05-26 08:17] LABS: ANION GAP 9.3 MEQ/L (5-15); Calcium 8.4 mg/dL (8.4-10.2); Creatinine 1 1.36 mg/dL (0.66-1.25); Potassium 4.3 mmol/L (3.5-5.1)
[2020-05-26] MEDS: NEURONTIN 300 MG PO SCH (08:18)
[2020-05-26] MEDS: ELIQUIS 2.5 MG TABLET PO SCH (08:18)
[2020-05-26] MEDS: Glucotrol 5 MG PO SCH (08:18)
[2020-05-26] MEDS ORDERED: ROCEPHIN 1 Gm-D5w 50 ml Bag** 1 G/50 ML IVPB IV SCH ×2 (10:00→22:00)
[2020-05-26] MEDS ORDERED: Cordarone 200 MG PO SCH (10:00)
[2020-05-26] MEDS ORDERED: Toprol Xl 50 MG PO SCH (10:00)
[2020-05-26] MEDS ORDERED: Protonix 40MG Tablet PO SCH (10:00)
[2020-05-26] MEDS ORDERED: ZYLOPRIM 100 MG PO SCH (10:00)
--- NOTE | 2020-05-26 10:49 | PCM.SSS ---
History of Present Illness - Chief Complaint Chief Complaint: Anemia History of Present Illness: is a 75 year old male pt of mine from [facility] with DM, CAD, HTN, CRF, and colon cancer (dx within the past 2 months) that was admitted directly by me for anemia and blood transfusion. He's been having bloody stools at least daily for the past 2 weeks. He started feeling weak, dizzy with standing, and called the office - hgb was 7.8 at outside hospital. I brought him in for transfusion and his hgb was 7.4 - 2 units PRBC given. He does feel better. Hgb up to 8.6 this morning. Will give him 1 more unit PRBC and if he is doing well this afternoon will d/c to home. - Review of Systems Constitutional: Weakness Neurological: Dizziness All Other Systems: Reviewed and Negative Medications & Allergies Home Medications: Home Medication List Allopurinol 100 mg [Zyloprim 100 mg] 100 mg PO DAILY 10/08/19 [History Confirmed 05/25/20] Metformin HCl 500 mg PO HS 10/08/19 [History Confirmed 05/26/20] Omeprazole 20 mg PO DAILY 10/08/19 [History Confirmed 05/25/20] Simvastatin 20 mg PO HS 10/08/19 [History Confirmed 05/26/20] glipiZIDE [Glipizide] 10 mg PO BID 10/08/19 [History Confirmed 05/25/20] Amiodarone HCl [Pacerone] 200 mg PO DAILY 12/18/19 [History Confirmed 05/25/20] Apixaban [Eliquis] 5 mg PO BID 12/18/19 [History Confirmed 05/25/20] Metoprolol Succinate 25 mg Xl* [Toprol-Xl 25MG Tablets] 50 mg PO DAILY 12/18/19 [History Confirmed 05/26/20] Furosemide [Lasix] 10 mg PO 3XW 05/25/20 [History Confirmed 05/25/20] Gabapentin 300 mg PO BID 05/25/20 [History Confirmed 05/25/20] Metformin HCl 1,000 mg PO DAILY 05/26/20 [History Confirmed 05/26/20] Allergies/Adverse Reactions: Allergies Allergy/AdvReac Type Severity Reaction Status Date / Time Sulfa (Sulfonamide Allergy Mild Verified 12/25/19 12:20 Antibiotics) - Past Medical History Past Medical History: Yes Neurological History: No Pertinent History ENT History: Cataracts Cardiac History: Arrhythmia Respiratory History: No Pertinent History Endocrine Medical History: Diabetes Type II Musculoskelatal History: Arthritis GI Medical History: Colorectal Cancer, GI Bleed History: Renal Disease Pyscho-Social History: No Pertinent History Male Reproductive Disorders: Prostate Problems - Past Surgical History Past Surgical History: Yes Neuro Surgical History: No Pertinent History Cardiac History: CABG Respiratory Surgery: No Pertinent History GI Surgical History: Appendectomy, Hernia Repair Genitourinary Surgical Hx: No Pertinent History Musculskeletal Surgical Hx: No Pertinent History Male Surgical History: No Pertinent History Other Surgical History: cardiac ablation oct 2019, cabg 2000, cataract sedrick. IOL, colonoscopy and egd, sedrick hernia - Social History Smoking Status: Never smoker Exposure to second hand smoke: No Alcohol: None Drug Use: none - Physical Exam Vital Signs: Vital Signs - 24 hr Temp Pulse Resp BP Pulse Ox 05/26/20 08:00 98.4 F 60 18 128/80 96 05/26/20 04:00 98.0 F 67 18 128/61 100 05/26/20 00:00 97.9 F 59 L 18 120/59 99 05/25/20 20:30 97.6 F 69 24 159/70 98 05/25/20 19:18 97.6 F 69 24 159/70 98 05/25/20 17:46 97.6 F 69 24 159/70 98 General Appearance: no apparent distress, alert Neurologic Exam: oriented x 3, cooperative Eye Exam: eyes nml inspection Ears, Nose, Throat Exam: moist mucous membranes Respiratory Exam: normal breath sounds, lungs clear, No crackles/rales, No rhonchi, No wheezing Cardiovascular Exam: regular rate/rhythm, normal heart sounds, murmur (L sternal border III/) Gastrointestinal/Abdomen Exam: soft, normal bowel sounds, No tenderness, No distention, No mass, No guarding, No rebound Extremity Exam: normal inspection, No pedal edema, No swelling Skin Exam: normal color, warm, dry, No rash Results - Labs Lab/Micro Results: Lab Results-Last 24 Hours 05/25/20 05/25/20 05/25/20 Range/Units 20:49 20:49 20:49 WBC 6.1 (4.0-10.5) K/mm3 RBC 2.42 L (4.1-5.6) M/mm3 Hgb 7.4 L (12.5-18.0) gm/dl Hct 24.4 L (42-50) % MCV 100.8 H (78-100) fl MCH 30.6 (26-32) pg MCHC 30.3 L (32-36) g/dl RDW 15.0 H (11.5-14.0) % Plt Count 207 (150-450) K/mm3 MPV 9.5 (7.5-11.0) fl Gran % 63.0 (36.0-66.0) % Eos # (Auto) 0.17 (0-0.5) Absolute Lymphs (auto) 1.57 (1.0-4.6) Absolute Monos (auto) 0.50 (0.0-1.3) Lymphocytes % 25.7 (24.0-44.0) % Monocytes % 8.2 (0.0-12.0) % Eosinophils % 2.8 (0.00-5.0) % Basophils % 0.3 (0.0-0.4) % Absolute Granulocytes 3.86 (1.4-6.9) Basophils # 0.02 (0-0.4) Sodium 139 (137-145) mmol/L Potassium 4.7 (3.5-5.1) mmol/L Chloride 108 H (98-107) mmol/L Carbon Dioxide 24 (22-30) mmol/L Anion Gap 12.1 (5-15) MEQ/L BUN 32 H (9-20) mg/dL Creatinine 1.63 H (0.66-1.25) mg/dL Estimated GFR 43.9 ML/MIN Glucose 222 H (74-106) mg/dL Calcium 9.2 (8.4-10.2) mg/dL Total Bilirubin 0.40 (0.2-1.3) mg/dL AST 26 (17-59) U/L ALT 38 (0-50) U/L Alkaline Phosphatase 92 (38-126) U/L Serum Total Protein 6.4 (6.3-8.2) g/dL Albumin 3.8 (3.5-5.0) g/dL Urine Color (YELLOW) Urine Appearance (CLEAR) Urine pH (5-6) Ur Specific [place] (1.005-1.025) Urine Protein (Negative) Urine Ketones (NEGATIVE) Urine Blood (0-5) Deon/ul Urine Nitrite (NEGATIVE) Urine Bilirubin (NEGATIVE) Urine Urobilinogen (0-1) mg/dL Ur Leukocyte Esterase (NEGATIVE) Urine WBC (Auto) (0-5) /HPF Urine RBC (Auto) (0-2) /HPF U Hyaline Cast (Auto) (0-2) /LPF U Epithel Cells (Auto) (FEW) /HPF Urine Bacteria (Auto) (NEGATIVE) /HPF Unidentified Crystals (NEGATIVE) /HPF Granular Casts (Auto) (NEGATIVE) /LPF Urine Mucus (Auto) (NEGATIVE) /HPF Urine Culture Reflexed (NO) Urine Glucose (NEGATIVE) mg/dL ABO Group A Rh Factor POSITIVE Antibody Screen NEGATIVE (NEGATIVE) Crossmatch COMPATIBLE (COMPATIBLE) 05/25/20 05/25/20 05/26/20 Range/Units 20:49 20:49 06:27 WBC (4.0-10.5) K/mm3 RBC (4.1-5.6) M/mm3 Hgb (12.5-18.0) gm/dl Hct (42-50) % MCV (78-100) fl MCH (26-32) pg MCHC (32-36) g/dl RDW (11.5-14.0) % Plt Count (150-450) K/mm3 MPV (7.5-11.0) fl Gran % (36.0-66.0) % Eos # (Auto) (0-0.5) Absolute Lymphs (auto) (1.0-4.6) Absolute Monos (auto) (0.0-1.3) Lymphocytes % (24.0-44.0) % Monocytes % (0.0-12.0) % Eosinophils % (0.00-5.0) % Basophils % (0.0-0.4) % Absolute Granulocytes (1.4-6.9) Basophils # (0-0.4) Sodium 140 (137-145) mmol/L Potassium 4.3 (3.5-5.1) mmol/L Chloride 111 H (98-107) mmol/L Carbon Dioxide 24 (22-30) mmol/L Anion Gap 9.3 (5-15) MEQ/L BUN 31 H (9-20) mg/dL Creatinine 1.36 H (0.66-1.25) mg/dL Estimated GFR 54.2 ML/MIN Glucose 129 H (74-106) mg/dL Calcium 8.4 (8.4-10.2) mg/dL Total Bilirubin (0.2-1.3) mg/dL AST (17-59) U/L ALT (0-50) U/L Alkaline Phosphatase (38-126) U/L Serum Total Protein (6.3-8.2) g/dL Albumin (3.5-5.0) g/dL Urine Color YELLOW (YELLOW) Urine Appearance CLOUDY (CLEAR) Urine pH 6.0 (5-6) Ur Specific [place] 1.013 (1.005-1.025) Urine Protein NEGATIVE (Negative) Urine Ketones NEGATIVE (NEGATIVE) Urine Blood SMALL (0-5) Deon/ul Urine Nitrite POSITIVE (NEGATIVE) Urine Bilirubin NEGATIVE (NEGATIVE) Urine Urobilinogen NEGATIVE (0-1) mg/dL Ur Leukocyte Esterase LARGE (NEGATIVE) Urine WBC (Auto) 51-100 (0-5) /HPF Urine RBC (Auto) 3-5 (0-2) /HPF U Hyaline Cast (Auto) 0-2 (0-2) /LPF U Epithel Cells (Auto) NONE (FEW) /HPF Urine Bacteria (Auto) MODERATE (NEGATIVE) /HPF Unidentified Crystals 25-50 (NEGATIVE) /HPF Granular Casts (Auto) 0-2 (NEGATIVE) /LPF Urine Mucus (Auto) SLIGHT (NEGATIVE) /HPF Urine Culture Reflexed ORDERED SEPARATELY (NO) Urine Glucose 150 (NEGATIVE) mg/dL ABO Group Rh Factor Antibody Screen (NEGATIVE) Crossmatch COMPATIBLE (COMPATIBLE) 05/26/20 Range/Units 06:27 WBC 5.8 (4.0-10.5) K/mm3 RBC 2.86 L (4.1-5.6) M/mm3 Hgb 8.6 L (12.5-18.0) gm/dl Hct 27.2 L (42-50) % MCV 95.1 (78-100) fl MCH 30.1 (26-32) pg MCHC 31.6 L (32-36) g/dl RDW 16.2 H (11.5-14.0) % Plt Count 153 (150-450) K/mm3 MPV 9.2 (7.5-11.0) fl Gran % 60.3 (36.0-66.0) % Eos # (Auto) 0.20 (0-0.5) Absolute Lymphs (auto) 1.53 (1.0-4.6) Absolute Monos (auto) 0.55 (0.0-1.3) Lymphocytes % 26.5 (24.0-44.0) % Monocytes % 9.5 (0.0-12.0) % Eosinophils % 3.5 (0.00-5.0) % Basophils % 0.2 (0.0-0.4) % Absolute Granulocytes 3.49 (1.4-6.9) Basophils # 0.01 (0-0.4) Sodium (137-145) mmol/L Potassium (3.5-5.1) mmol/L Chloride (98-107) mmol/L Carbon Dioxide (22-30) mmol/L Anion Gap (5-15) MEQ/L BUN (9-20) mg/dL Creatinine (0.66-1.25) mg/dL Estimated GFR ML/MIN Glucose (74-106) mg/dL Calcium (8.4-10.2) mg/dL Total Bilirubin (0.2-1.3) mg/dL AST (17-59) U/L ALT (0-50) U/L Alkaline Phosphatase (38-126) U/L Serum Total Protein (6.3-8.2) g/dL Albumin (3.5-5.0) g/dL Urine Color (YELLOW) Urine Appearance (CLEAR) Urine pH (5-6) Ur Specific [place] (1.005-1.025) Urine Protein (Negative) Urine Ketones (NEGATIVE) Urine Blood (0-5) Deon/ul Urine Nitrite (NEGATIVE) Urine Bilirubin (NEGATIVE) Urine Urobilinogen (0-1) mg/dL Ur Leukocyte Esterase (NEGATIVE) Urine WBC (Auto) (0-5) /HPF Urine RBC (Auto) (0-2) /HPF U Hyaline Cast (Auto) (0-2) /LPF U Epithel Cells (Auto) (FEW) /HPF Urine Bacteria (Auto) (NEGATIVE) /HPF Unidentified Crystals (NEGATIVE) /HPF Granular Casts (Auto) (NEGATIVE) /LPF Urine Mucus (Auto) (NEGATIVE) /HPF Urine Culture Reflexed (NO) Urine Glucose (NEGATIVE) mg/dL ABO Group Rh Factor Antibody Screen (NEGATIVE) Crossmatch (COMPATIBLE) Microbiology 05/25/20 20:28 Urine Culture - Preliminary Urine, Indwelling Catheter NO GROWTH TO DATE Assessment/Plan (1) Anemia Current Visit: No Status: Acute Qualifiers: Anemia type: iron deficiency Iron deficiency anemia type: unspecified iron deficiency Qualified Code(s): D50.9 - Iron deficiency anemia, unspecified Assessment & Plan: Hgb up to 8.6 - will transfuse 1 more unit, as he is having major abdominal surgery next week and continues to have rectal bleeding (on Eliquis). Pt's surgeon is aware that he's here. Code(s): D64.9 - ANEMIA, UNSPECIFIED (2) Hematochezia Current Visit: Yes Status: Acute Code(s): K92.1 - MELENA (3) Colon cancer Current Visit: Yes Status: Chronic Qualifiers: Colon location: unspecified part of colon Qualified Code(s): C18.9 - Malignant neoplasm of colon, unspecified (4) HTN (hypertension) Current Visit: Yes Status: Chronic Qualifiers: Hypertension type: essential hypertension Qualified Code(s): I10 - Essential (primary) hypertension Code(s): I10 - ESSENTIAL (PRIMARY) HYPERTENSION (5) Diabetes Current Visit: Yes Status: Chronic Qualifiers: Diabetes mellitus type: type 2 Diabetes mellitus jail insulin use: without jail use Diabetes mellitus complication status: with kidney complications Diabetes mellitus complication detail: with chronic kidney disease Chronic kidney disease stage: stage 3 (moderate) Qualified Code(s): E11.22 - Type 2 diabetes mellitus with diabetic chronic kidney disease; N18.3 - Chronic kidney disease, stage 3 (moderate) Code(s): E11.9 - TYPE 2 DIABETES MELLITUS WITHOUT COMPLICATIONS (6) Chronic renal disease Current Visit: Yes Status: Chronic Qualifiers: Chronic kidney disease stage: stage 3 (moderate) Qualified Code(s): N18.3 - Chronic kidney disease, stage 3 (moderate) Code(s): N18.9 - CHRONIC KIDNEY DISEASE, UNSPECIFIED Hospital Summary - Hospital Course Hospital Course: is a 75 year old male pt of mine from [facility] with DM, CAD, HTN, CRF, and colon cancer (dx within the past 2 months) that was admitted directly by me for anemia and blood transfusion. He's been having bloody stools at least daily for the past 2 weeks. He started feeling weak, dizzy with standing, and called the office - hgb was 7.8 at outside hospital. I brought him in for transfusion and his hgb was 7.4 - 2 units PRBC given. He does feel better. Hgb up to 8.6 this morning. Will give him 1 more unit PRBC and if he is doing well this afternoon will d/c to home. - Vitals & Intake/Output Vital Signs: Vital Signs Temperature 98.4 F 05/26/20 08:00 Pulse Rate 60 05/26/20 08:00 Respiratory Rate 18 05/26/20 08:00 Blood Pressure 128/80 05/26/20 08:00 O2 Sat by Pulse Oximetry 96 05/26/20 08:00 Intake & Output: Intake & Output 05/23/20 05/24/20 05/25/20 05/26/20 11:59 11:59 11:59 11:59 Intake Total 1970 Output Total 700 Balance 1270 Weight 78.7 kg - Lab Result Diagrams: 05/26/20 06:27 05/26/20 06:27 Lab Results-Last 24 Hrs: Lab Results-Last 24 Hours 05/25/20 05/25/20 05/25/20 Range/Units 20:49 20:49 20:49 WBC 6.1 (4.0-10.5) K/mm3 RBC 2.42 L (4.1-5.6) M/mm3 Hgb 7.4 L (12.5-18.0) gm/dl Hct 24.4 L (42-50) % MCV 100.8 H (78-100) fl MCH 30.6 (26-32) pg MCHC 30.3 L (32-36) g/dl RDW 15.0 H (11.5-14.0) % Plt Count 207 (150-450) K/mm3 MPV 9.5 (7.5-11.0) fl Gran % 63.0 (36.0-66.0) % Eos # (Auto) 0.17 (0-0.5) Absolute Lymphs (auto) 1.57 (1.0-4.6) Absolute Monos (auto) 0.50 (0.0-1.3) Lymphocytes % 25.7 (24.0-44.0) % Monocytes % 8.2 (0.0-12.0) % Eosinophils % 2.8 (0.00-5.0) % Basophils % 0.3 (0.0-0.4) % Absolute Granulocytes 3.86 (1.4-6.9) Basophils # 0.02 (0-0.4) Sodium 139 (137-145) mmol/L Potassium 4.7 (3.5-5.1) mmol/L Chloride 108 H (98-107) mmol/L Carbon Dioxide 24 (22-30) mmol/L Anion Gap 12.1 (5-15) MEQ/L BUN 32 H (9-20) mg/dL Creatinine 1.63 H (0.66-1.25) mg/dL Estimated GFR 43.9 ML/MIN Glucose 222 H (74-106) mg/dL Calcium 9.2 (8.4-10.2) mg/dL Total Bilirubin 0.40 (0.2-1.3) mg/dL AST 26 (17-59) U/L ALT 38 (0-50) U/L Alkaline Phosphatase 92 (38-126) U/L Serum Total Protein 6.4 (6.3-8.2) g/dL Albumin 3.8 (3.5-5.0) g/dL Urine Color (YELLOW) Urine Appearance (CLEAR) Urine pH (5-6) Ur Specific [place] (1.005-1.025) Urine Protein (Negative) Urine Ketones (NEGATIVE) Urine Blood (0-5) Deon/ul Urine Nitrite (NEGATIVE) Urine Bilirubin (NEGATIVE) Urine Urobilinogen (0-1) mg/dL Ur Leukocyte Esterase (NEGATIVE) Urine WBC (Auto) (0-5) /HPF Urine RBC (Auto) (0-2) /HPF U Hyaline Cast (Auto) (0-2) /LPF U Epithel Cells (Auto) (FEW) /HPF Urine Bacteria (Auto) (NEGATIVE) /HPF Unidentified Crystals (NEGATIVE) /HPF Granular Casts (Auto) (NEGATIVE) /LPF Urine Mucus (Auto) (NEGATIVE) /HPF Urine Culture Reflexed (NO) Urine Glucose (NEGATIVE) mg/dL ABO Group A Rh Factor POSITIVE Antibody Screen NEGATIVE (NEGATIVE) Crossmatch COMPATIBLE (COMPATIBLE) 05/25/20 05/25/20 05/26/20 Range/Units 20:49 20:49 06:27 WBC (4.0-10.5) K/mm3 RBC (4.1-5.6) M/mm3 Hgb (12.5-18.0) gm/dl Hct (42-50) % MCV (78-100) fl MCH (26-32) pg MCHC (32-36) g/dl RDW (11.5-14.0) % Plt Count (150-450) K/mm3 MPV (7.5-11.0) fl Gran % (36.0-66.0) % Eos # (Auto) (0-0.5) Absolute Lymphs (auto) (1.0-4.6) Absolute Monos (auto) (0.0-1.3) Lymphocytes % (24.0-44.0) % Monocytes % (0.0-12.0) % Eosinophils % (0.00-5.0) % Basophils % (0.0-0.4) % Absolute Granulocytes (1.4-6.9) Basophils # (0-0.4) Sodium 140 (137-145) mmol/L Potassium 4.3 (3.5-5.1) mmol/L Chloride 111 H (98-107) mmol/L Carbon Dioxide 24 (22-30) mmol/L Anion Gap 9.3 (5-15) MEQ/L BUN 31 H (9-20) mg/dL Creatinine 1.36 H (0.66-1.25) mg/dL Estimated GFR 54.2 ML/MIN Glucose 129 H (74-106) mg/dL Calcium 8.4 (8.4-10.2) mg/dL Total Bilirubin (0.2-1.3) mg/dL AST (17-59) U/L ALT (0-50) U/L Alkaline Phosphatase (38-126) U/L Serum Total Protein (6.3-8.2) g/dL Albumin (3.5-5.0) g/dL Urine Color YELLOW (YELLOW) Urine Appearance CLOUDY (CLEAR) Urine pH 6.0 (5-6) Ur Specific [place] 1.013 (1.005-1.025) Urine Protein NEGATIVE (Negative) Urine Ketones NEGATIVE (NEGATIVE) Urine Blood SMALL (0-5) Deon/ul Urine Nitrite POSITIVE (NEGATIVE) Urine Bilirubin NEGATIVE (NEGATIVE) Urine Urobilinogen NEGATIVE (0-1) mg/dL Ur Leukocyte Esterase LARGE (NEGATIVE) Urine WBC (Auto) 51-100 (0-5) /HPF Urine RBC (Auto) 3-5 (0-2) /HPF U Hyaline Cast (Auto) 0-2 (0-2) /LPF U Epithel Cells (Auto) NONE (FEW) /HPF Urine Bacteria (Auto) MODERATE (NEGATIVE) /HPF Unidentified Crystals 25-50 (NEGATIVE) /HPF Granular Casts (Auto) 0-2 (NEGATIVE) /LPF Urine Mucus (Auto) SLIGHT (NEGATIVE) /HPF Urine Culture Reflexed ORDERED SEPARATELY (NO) Urine Glucose 150 (NEGATIVE) mg/dL ABO Group Rh Factor Antibody Screen (NEGATIVE) Crossmatch COMPATIBLE (COMPATIBLE) 05/26/20 Range/Units 06:27 WBC 5.8 (4.0-10.5) K/mm3 RBC 2.86 L (4.1-5.6) M/mm3 Hgb 8.6 L (12.5-18.0) gm/dl Hct 27.2 L (42-50) % MCV 95.1 (78-100) fl MCH 30.1 (26-32) pg MCHC 31.6 L (32-36) g/dl RDW 16.2 H (11.5-14.0) % Plt Count 153 (150-450) K/mm3 MPV 9.2 (7.5-11.0) fl Gran % 60.3 (36.0-66.0) % Eos # (Auto) 0.20 (0-0.5) Absolute Lymphs (auto) 1.53 (1.0-4.6) Absolute Monos (auto) 0.55 (0.0-1.3) Lymphocytes % 26.5 (24.0-44.0) % Monocytes % 9.5 (0.0-12.0) % Eosinophils % 3.5 (0.00-5.0) % Basophils % 0.2 (0.0-0.4) % Absolute Granulocytes 3.49 (1.4-6.9) Basophils # 0.01 (0-0.4) Sodium (137-145) mmol/L Potassium (3.5-5.1) mmol/L Chloride (98-107) mmol/L Carbon Dioxide (22-30) mmol/L Anion Gap (5-15) MEQ/L BUN (9-20) mg/dL Creatinine (0.66-1.25) mg/dL Estimated GFR ML/MIN Glucose (74-106) mg/dL Calcium (8.4-10.2) mg/dL Total Bilirubin (0.2-1.3) mg/dL AST (17-59) U/L ALT (0-50) U/L Alkaline Phosphatase (38-126) U/L Serum Total Protein (6.3-8.2) g/dL Albumin (3.5-5.0) g/dL Urine Color (YELLOW) Urine Appearance (CLEAR) Urine pH (5-6) Ur Specific [place] (1.005-1.025) Urine Protein (Negative) Urine Ketones (NEGATIVE) Urine Blood (0-5) Deon/ul Urine Nitrite (NEGATIVE) Urine Bilirubin (NEGATIVE) Urine Urobilinogen (0-1) mg/dL Ur Leukocyte Esterase (NEGATIVE) Urine WBC (Auto) (0-5) /HPF Urine RBC (Auto) (0-2) /HPF U Hyaline Cast (Auto) (0-2) /LPF U Epithel Cells (Auto) (FEW) /HPF Urine Bacteria (Auto) (NEGATIVE) /HPF Unidentified Crystals (NEGATIVE) /HPF Granular Casts (Auto) (NEGATIVE) /LPF Urine Mucus (Auto) (NEGATIVE) /HPF Urine Culture Reflexed (NO) Urine Glucose (NEGATIVE) mg/dL ABO Group Rh Factor Antibody Screen (NEGATIVE) Crossmatch (COMPATIBLE) Micro Results-Entire Visit: Microbiology 05/25/20 20:28 Urine Culture - Preliminary Urine, Indwelling Catheter NO GROWTH TO DATE - Discharge Disposition: Home, Self-Care Condition: Stable Prescriptions: No Action glipiZIDE [Glipizide] 10 mg PO BID Simvastatin 20 mg PO HS Omeprazole 20 mg PO DAILY Metformin HCl 500 mg PO HS Allopurinol 100 mg [Zyloprim 100 mg] 100 mg PO DAILY Metoprolol Succinate 25 mg Xl* [Toprol-Xl 25MG Tablets] 50 mg PO DAILY Apixaban [Eliquis] 5 mg PO BID Amiodarone HCl [Pacerone] 200 mg PO DAILY Gabapentin 300 mg PO BID Furosemide [Lasix] 10 mg PO 3XW Metformin HCl 1,000 mg PO DAILY Follow up with: MADELINE GARRISON [Primary Care Provider] - 1 Week
[2020-05-26] MEDS ORDERED: Sodium Chloride 0.9% 500 ML 500 ML IV SCH (11:00)
[2020-05-26 14:05] LABS: CROSS MATCH (PRBC) COMPATIBLE (COMPATIBLE)
[2020-05-26] MEDS ORDERED: Glucotrol 5 MG PO SCH (16:30)
[2020-05-26 16:32] VITALS: PULSE 61
[2020-05-26 19:01] VITALS: BP 168/70; O2SAT 98
[2020-05-27] MEDS ORDERED: LASIX 20 MG PO SCH (10:00)
== END 2020-05-26 19:04 | disposition home or self-care (01) ==
LOC: MED SURG 17:27
PROVIDERS: ADMIT Family Medicine; ATTEND Family Medicine
DX: D50.9 Iron deficiency anemia, unspecified (principal); K92.1 Melena; C18.9 Malignant neoplasm of colon, unspecified; R42 Dizziness and giddiness; E11.22 Type 2 diabetes mellitus with diabetic chronic kidney disease; I13.10 Hypertensive heart and chronic kidney disease without heart failure, with stage 1 through stage 4 chronic kidney disease, or unspecified chronic kidney disease; N18.9 Chronic kidney disease, unspecified; R53.1 Weakness; Z79.01 Long term (current) use of anticoagulants; Z79.899 Other long term (current) drug therapy
CPT/HCPCS: 36415; 36430; 80048; 80053; 81001; 85025; 86850; 86900; 86901; 86922; 87086; G0378; P9016; 87077; 87186; J0696; A9270-GY

== ENCOUNTER 2020-05-28 09:25 | Inpatient (IN) | payer MEDICARE ==
[2020-05-28] MEDS ORDERED: TYLENOL 325 MG PO PRN (17:37)
[2020-05-28] MEDS ORDERED: Phenergan 25 MG INJ IV PRN (17:38)
[2020-05-28] MEDS ORDERED: HUMALOG SQ PRN (17:42)
[2020-05-28] MEDS: Lactated Ringers 1,000 ML IV SCH (18:59)
[2020-05-28 19:43] LABS: ALBUMIN 3.9 g/dL (3.5-5.0); ANION GAP 11.7 MEQ/L (5-15); BILIRUBIN,TOTAL 0.6 mg/dL (0.2-1.3); Calcium 9.2 mg/dL (8.4-10.2); Creatinine 1 1.45 mg/dL (0.66-1.25); Hematocrit 33.6 % (42-50); Hemoglobin 10.5 gm/dl (12.5-18.0); Mean Corpuscular Hgb Concent. 31.3 g/dl (32-36); Mean Platelet Volume 9.9 fl (7.5-11.0); Platelet Count 196 K/mm3 (150-450); Potassium 4.6 mmol/L (3.5-5.1); Red Cell Distribution Width 16.2 % (11.5-14.0); Total Protein 6.6 g/dL (6.3-8.2); White Blood Count 7.9 K/mm3 (4.0-10.5)
[2020-05-28] MEDS ORDERED: MAXIPIME 1 GM ONE (20:36)
[2020-05-28] MEDS ORDERED: D5w 100ML Mini Bag 100 ML 100 ML IV ONE (20:37)
[2020-05-28] MEDS: MAXIPIME 1 GM** 1 G in Dextrose 5%/Water IV Soln. 100ML PLUS BAG 100 ML IV SCH (20:49)
[2020-05-28] MEDS ORDERED: ELIQUIS 2.5 MG TABLET PO SCH (22:00)
[2020-05-28] MEDS: NEURONTIN 300 MG PO SCH (23:18)
[2020-05-29] MEDS: MAXIPIME 1 GM** 1 G in Dextrose 5%/Water IV Soln. 100ML PLUS BAG 100 ML IV SCH ×3 (00:13→21:11)
[2020-05-29 05:24] LABS: Hematocrit 29.6 % (42-50); Hemoglobin 9.2 gm/dl (12.5-18.0); Mean Cell Volume 95.2 fl (78-100); Mean Corpuscular Hemoglobin 29.6 pg (26-32); Mean Corpuscular Hgb Concent. 31.1 g/dl (32-36); Mean Platelet Volume 9.3 fl (7.5-11.0); Platelet Count 166 K/mm3 (150-450); Red Blood Count 3.11 M/mm3 (4.1-5.6); Red Cell Distribution Width 15.6 % (11.5-14.0); White Blood Count 6.9 K/mm3 (4.0-10.5)
[2020-05-29] MEDS: ELIQUIS 2.5 MG TABLET PO SCH ×3 (07:09→21:10)
[2020-05-29] MEDS: Lactated Ringers 1,000 ML IV SCH ×2 (08:41→21:18)
[2020-05-29] MEDS: NEURONTIN 300 MG PO SCH ×2 (09:33→21:11)
[2020-05-29] MEDS: Protonix 40MG Tablet PO SCH (09:34)
[2020-05-29] MEDS: Toprol Xl 50 MG PO SCH (09:34)
--- NOTE | 2020-05-29 09:34 | PCM.HP ---
History of Present Illness - Chief Complaint Chief Complaint: UTI History of Present Illness: is a 75 year old male pt of mine from [facility] with CAD, DM, afib, bladder obstruction with indwelling serrato catheter, and recent dx of colon cancer who was admitted directly by me yesterday for UTI. He had UA done during last hospitalization here (for anemia/transfusion) and it grew pseudomonas, 50-60,000 CFUs and S. aureus 10-20,000 CFUs. The pseudomonas was resistant to levaquin and cipro; pt is allergic to penicillin. I started him on IV cefepime yesterday. He left the hospital 3d ago, then early the next morning felt that his urinary catheter was clogged and he removed it himself. He urinated independently for a while then had to go to [facility] ER and have another serrato catheter placed. - Review of Systems Genitourinary Symptoms: Urinary Retention All Other Systems: Reviewed and Negative Medications & Allergies Home Medications: Home Medication List Allopurinol 100 mg [Zyloprim 100 mg] 100 mg PO DAILY 10/08/19 [History Confirmed 05/28/20] Metformin HCl 500 mg PO HS 10/08/19 [History Confirmed 05/28/20] Omeprazole 20 mg PO DAILY 10/08/19 [History Confirmed 05/28/20] Simvastatin 20 mg PO HS 10/08/19 [History Confirmed 05/28/20] glipiZIDE [Glipizide] 10 mg PO BID 10/08/19 [History Confirmed 05/28/20] Apixaban [Eliquis] 5 mg PO BID 12/18/19 [History Confirmed 05/28/20] Metoprolol Succinate 25 mg Xl* [Toprol-Xl 25MG Tablets] 50 mg PO DAILY 12/18/19 [History Confirmed 05/28/20] Furosemide [Lasix] 10 mg PO 3XW 05/25/20 [History Confirmed 05/28/20] Gabapentin 300 mg PO BID 05/25/20 [History Confirmed 05/28/20] Metformin HCl 1,000 mg PO DAILY 05/26/20 [History Confirmed 05/28/20] Allergies/Adverse Reactions: Allergies Allergy/AdvReac Type Severity Reaction Status Date / Time Sulfa (Sulfonamide Allergy Mild Verified 12/25/19 12:20 Antibiotics) - Past Medical History Past Medical History: Yes Neurological History: No Pertinent History ENT History: Cataracts Cardiac History: Arrhythmia Respiratory History: No Pertinent History Endocrine Medical History: Diabetes Type II Musculoskelatal History: Arthritis GI Medical History: Colorectal Cancer, GI Bleed History: Renal Disease Pyscho-Social History: No Pertinent History Male Reproductive Disorders: Prostate Problems - Past Surgical History Past Surgical History: Yes Neuro Surgical History: No Pertinent History Cardiac History: CABG Respiratory Surgery: No Pertinent History GI Surgical History: Appendectomy, Hernia Repair Genitourinary Surgical Hx: No Pertinent History Musculskeletal Surgical Hx: No Pertinent History Male Surgical History: No Pertinent History Other Surgical History: cardiac ablation oct 2019, cabg 2000, cataract sedrick. IOL, colonoscopy and egd, sedrick hernia - Social History Smoking Status: Former smoker Exposure to second hand smoke: No Alcohol: None Drug Use: none - Physical Exam Vital Signs: Vital Signs - 24 hr Temp Pulse Resp BP Pulse Ox 05/29/20 06:53 98.0 F 63 18 142/63 97 05/29/20 04:00 98.3 F 70 17 124/59 98 05/29/20 00:00 97.7 F 67 19 169/72 98 05/28/20 20:00 97.9 F 63 18 177/77 99 05/28/20 18:42 97.9 F 63 18 177/77 99 General Appearance: no apparent distress, alert Neurologic Exam: oriented x 3, cooperative Eye Exam: eyes nml inspection Ears, Nose, Throat Exam: moist mucous membranes Neck Exam: normal inspection, non-tender, No lymphadenopathy Respiratory Exam: normal breath sounds, lungs clear, No crackles/rales, No rhonchi, No wheezing Cardiovascular Exam: regular rate/rhythm, normal heart sounds, No murmur Gastrointestinal/Abdomen Exam: soft, normal bowel sounds, No tenderness, No distention, No mass, No guarding, No rebound Back Exam: normal inspection, No CVA tenderness, No rash Extremity Exam: No pedal edema, No swelling Skin Exam: normal color, warm, dry, No rash Results - Labs Lab/Micro Results: Accuchecks Date 05/29/20 Time 07:30 Accucheck Value: 90 Lab Results-Last 24 Hours 05/28/20 05/28/20 05/29/20 Range/Units 19:15 19:15 05:00 WBC 7.9 6.9 (4.0-10.5) K/mm3 RBC 3.50 L 3.11 L (4.1-5.6) M/mm3 Hgb 10.5 L 9.2 L (12.5-18.0) gm/dl Hct 33.6 L 29.6 L (42-50) % MCV 96.0 95.2 (78-100) fl MCH 30.0 29.6 (26-32) pg MCHC 31.3 L 31.1 L (32-36) g/dl RDW 16.2 H 15.6 H (11.5-14.0) % Plt Count 196 166 (150-450) K/mm3 MPV 9.9 9.3 (7.5-11.0) fl Sodium 140 (137-145) mmol/L Potassium 4.6 (3.5-5.1) mmol/L Chloride 109 H (98-107) mmol/L Carbon Dioxide 23 (22-30) mmol/L Anion Gap 11.7 (5-15) MEQ/L BUN 25 H (9-20) mg/dL Creatinine 1.45 H (0.66-1.25) mg/dL Estimated GFR 50.3 ML/MIN Glucose 256 H (74-106) mg/dL Calcium 9.2 (8.4-10.2) mg/dL Total Bilirubin 0.60 (0.2-1.3) mg/dL AST 30 (17-59) U/L ALT 33 (0-50) U/L Alkaline Phosphatase 84 (38-126) U/L Serum Total Protein 6.6 (6.3-8.2) g/dL Albumin 3.9 (3.5-5.0) g/dL Accuchecks Date 05/29/20 Time 07:30 Accucheck Value: 90 Assessment/Plan (1) UTI (urinary tract infection) Current Visit: Yes Status: Acute Qualifiers: Urinary tract infection type: catheter-associated UTI Indwelling urinary catheter type: indwelling urethral catheter Encounter type: initial encounter Qualified Code(s): T83.511A - Infection and inflammatory reaction due to indwelling urethral catheter, initial encounter; N39.0 - Urinary tract infection, site not specified Assessment & Plan: On cefepime day #2. I will discuss with his surgeon as he is scheduled for colon surgery next Monday. He is also supposed to get a COVID test in [place] in 2d. Code(s): N39.0 - URINARY TRACT INFECTION, SITE NOT SPECIFIED (2) Anemia Current Visit: No Status: Chronic Qualifiers: Anemia type: iron deficiency Iron deficiency anemia type: unspecified iron deficiency Qualified Code(s): D50.9 - Iron deficiency anemia, unspecified Assessment & Plan: Hgb 9.2 today. 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 Diabetes mellitus complication status: with kidney complications Diabetes mellitus complication detail: with chronic kidney disease Chronic kidney disease stage: stage 3 (moderate) Qualified Code(s): E11.22 - Type 2 diabetes mellitus with diabetic chronic kidney disease; N18.3 - Chronic kidney disease, stage 3 (moderate) Code(s): E11.9 - TYPE 2 DIABETES MELLITUS WITHOUT COMPLICATIONS (5) HTN (hypertension) Current Visit: No Status: Chronic Qualifiers: Hypertension type: essential hypertension Qualified Code(s): I10 - Essential (primary) hypertension Code(s): I10 - ESSENTIAL (PRIMARY) HYPERTENSION
[2020-05-29] MEDS ORDERED: Protonix 20MG Tablet PO SCH (10:00)
[2020-05-29] MEDS: ZYLOPRIM 100 MG PO SCH (10:41)
[2020-05-29] MEDS: Glucophage 500 MG PO SCH ×2 (10:41→21:10)
[2020-05-29] MEDS: Glucotrol 5 MG PO SCH (16:28)
[2020-05-29] MEDS: ZOCOR 20MG PO SCH (21:11)
[2020-05-29] MEDS ORDERED: SIMVASTATIN 20 MG PO SCH (22:00)
[2020-05-29] MEDS ORDERED: METFORMIN HCL 500 MG PO SCH (22:00)
[2020-05-30] MEDS: Glucophage 500 MG PO SCH ×2 (08:13→21:11)
[2020-05-30] MEDS: Glucotrol 5 MG PO SCH ×2 (08:14→17:36)
[2020-05-30] MEDS: MAXIPIME 1 GM** 1 G in Dextrose 5%/Water IV Soln. 100ML PLUS BAG 100 ML IV SCH ×2 (09:54→21:10)
[2020-05-30] MEDS: Protonix 40MG Tablet PO SCH (09:55)
[2020-05-30] MEDS: ZYLOPRIM 100 MG PO SCH (09:55)
[2020-05-30] MEDS: Toprol Xl 50 MG PO SCH (09:55)
[2020-05-30] MEDS: NEURONTIN 300 MG PO SCH ×2 (09:55→21:11)
[2020-05-30] MEDS: ELIQUIS 2.5 MG TABLET PO SCH ×2 (09:55→21:11)
[2020-05-30] MEDS ORDERED: LASIX 20 MG PO SCH (10:00)
[2020-05-30] MEDS ORDERED: NON-FORMULARY ITEM (Metformin Hcl [Metformin Hcl] 1,000 MG) PO SCH (10:00)
[2020-05-30] MEDS: Lactated Ringers 1,000 ML IV SCH (13:25)
--- NOTE | 2020-05-30 16:14 | PCM.NOTE ---
Date and Time: 05/30/20 1613 Subjective Assessment: 75 yr old male seen and examined this am. Patient reports he still has some abdominal pain. He denies any dysuria and reports he has had serrato cath for about 6 weeks. He is supposed to have urology surgery but he needs to have his colon surgery first. He is due for surgery on Mon. Patient reports that he did require blood products recently. He reports feeling weak. - Review of Systems Constitutional: Weakness, No Fever Eyes: No Symptoms Ears, Nose, & Throat: No Symptoms Respiratory: No Cough, No Short Of Breath, No Wheezing Cardiac: Other (hx of heart murmur), No Chest Pain, No Edema Abdominal/Gastrointestinal: Abdominal Pain, Hematochezia, No Nausea, No Vomiting, No Diarrhea, No Constipation Genitourinary Symptoms: Other (serrato cath) Musculoskeletal: No Symptoms Skin: No Symptoms Neurological: No Dizziness, No Headache Psychological: No Symptoms Hematologic/Lymphatic: Anemia Objective Exam General Appearance: no apparent distress Neurologic Exam: alert, oriented x 3, normal mood/affect, No disoriented, No confusion, No agitation Skin Exam: warm, dry, pale, No rash Eye Exam: eyes nml inspection, No scleral icterus Ears, Nose, Throat Exam: moist mucous membranes Neck Exam: normal inspection, No carotid bruit, No JVD Respiratory Exam: normal breath sounds, lungs clear, No respiratory distress, No diminished breath sounds, No wheezing Cardiovascular Exam: regular rate/rhythm, normal heart sounds, murmur, No friction rub, No gallop Gastrointestinal/Abdomen Exam: soft, normal bowel sounds, tenderness, distention, No guarding, No rebound Extremity Exam: normal inspection, No pedal edema, No swelling Male Genitalia Exam: other (Serrato cath) OBJECTIVE DATA Vital Signs: Vital Signs - 24 hr Temp Pulse Resp BP Pulse Ox 05/30/20 11:56 98.4 F 67 16 135/59 97 05/30/20 07:58 98.9 F 70 14 109/52 94 L 05/30/20 04:05 98.1 F 76 16 117/57 95 05/29/20 23:35 98.3 F 66 18 131/58 97 05/29/20 19:22 98.1 F 65 20 122/58 96 Pain Assessment - Last Documented Pain Intensity 0 Pain Scale Used 0-10 Pain Scale Intake and Output: Intake & Output 05/28/20 05/29/20 05/30/20 05/31/20 11:59 11:59 11:59 11:59 Intake Total 1313 3521 240 Output Total 900 2000 1800 Balance 413 1521 -1560 Weight 78.2 kg Lab Results: Accuchecks Accucheck Value: 81 Accucheck Value: 81 Assessment/Plan (1) UTI (urinary tract infection) Current Visit: Yes Status: Acute Qualifiers: Urinary tract infection type: catheter-associated UTI Indwelling urinary catheter type: indwelling urethral catheter Encounter type: initial encounter Qualified Code(s): T83.511A - Infection and inflammatory reaction due to indwelling urethral catheter, initial encounter; N39.0 - Urinary tract infection, site not specified Assessment & Plan: Patient is being treated for UTI. He does have a serrato cath. Plan if for discharge tomorrow and he may require 1-2 more doses of antibiotics. Code(s): N39.0 - URINARY TRACT INFECTION, SITE NOT SPECIFIED (2) Atrial flutter with rapid ventricular response Current Visit: No Status: Acute Assessment & Plan: Patient does have hx of afib that appears to be controlled at this time. Will continue to monitor Code(s): I48.92 - UNSPECIFIED ATRIAL FLUTTER (3) Hematochezia Current Visit: No Status: Acute Assessment & Plan: Related to colon cancer. Patient has required blood products. His repeat hgb is trending down. Will possibly need to transfuse right before discharge to home tomorrow. Code(s): K92.1 - MELENA (4) Anemia Current Visit: No Status: Chronic Qualifiers: Anemia type: iron deficiency Iron deficiency anemia type: unspecified iron deficiency Qualified Code(s): D50.9 - Iron deficiency anemia, unspecified Assessment & Plan: likely due to GI blood loss but patient also has ckd. 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 Code(s): E11.9 - TYPE 2 DIABETES MELLITUS WITHOUT COMPLICATIONS
[2020-05-30 17:07] LABS: BASOPHIL % 0.2 % (0.0-0.4); Basophil (Absolute #) 0.01 (0-0.4); Eosinophil % 3.6 % (0.00-5.0); Eosinophil (Absolute #) 0.23 (0-0.5); Hematocrit 27.9 % (42-50); Hemoglobin 8.8 gm/dl (12.5-18.0); Lymphocyte (Absolute #) 1.13 (1.0-4.6); Lymphocytes % 17.6 % (24.0-44.0); Mean Cell Volume 95.5 fl (78-100); Mean Corpuscular Hemoglobin 30.1 pg (26-32); Mean Corpuscular Hgb Concent. 31.5 g/dl (32-36); Mean Platelet Volume 9.7 fl (7.5-11.0); Monocyte (Absolute #) 0.64 (0.0-1.3); Neutrophil % 68.6 % (36.0-66.0); Platelet Count 168 K/mm3 (150-450); Red Blood Count 2.92 M/mm3 (4.1-5.6); Red Cell Distribution Width 15.1 % (11.5-14.0); White Blood Count 6.4 K/mm3 (4.0-10.5)
[2020-05-30] MEDS: ZOCOR 20MG PO SCH (21:11)
[2020-05-31] MEDS: Lactated Ringers 1,000 ML IV SCH (04:15)
[2020-05-31 05:58] LABS: Hematocrit 29.1 % (42-50); Hemoglobin 9.2 gm/dl (12.5-18.0); Mean Cell Volume 94.2 fl (78-100); Mean Corpuscular Hemoglobin 29.8 pg (26-32); Mean Corpuscular Hgb Concent. 31.6 g/dl (32-36); Mean Platelet Volume 9.8 fl (7.5-11.0); Platelet Count 169 K/mm3 (150-450); Red Blood Count 3.09 M/mm3 (4.1-5.6); White Blood Count 6.5 K/mm3 (4.0-10.5)
[2020-05-31 06:17] LABS: ANION GAP 8.7 MEQ/L (5-15); Calcium 8.8 mg/dL (8.4-10.2); Creatinine 1 1.28 mg/dL (0.66-1.25)
[2020-05-31] MEDS: Glucophage 500 MG PO SCH (08:28)
[2020-05-31] MEDS: Glucotrol 5 MG PO SCH (08:28)
[2020-05-31] MEDS: MAXIPIME 1 GM** 1 G in Dextrose 5%/Water IV Soln. 100ML PLUS BAG 100 ML IV SCH (08:39)
[2020-05-31] MEDS: NEURONTIN 300 MG PO SCH (09:52)
[2020-05-31] MEDS: Protonix 40MG Tablet PO SCH (09:52)
[2020-05-31] MEDS: Toprol Xl 50 MG PO SCH (09:52)
[2020-05-31] MEDS: ELIQUIS 2.5 MG TABLET PO SCH (09:52)
[2020-05-31] MEDS: ZYLOPRIM 100 MG PO SCH (09:52)
--- NOTE | 2020-05-31 10:34 | PCM.DS ---
Discharge Summary Date of Admission: 05/29/20 09:25 Date of Discharge: 05/31/2020 Admitting Physician: MADELINE GARRISON Primary Care Provider: MADELINE GARRISON Allergies Allergies Sulfa (Sulfonamide Antibiotics) Allergy (Mild, Verified 12/25/19 12:20) "heavy sweats" hot and flushed Hospital Summary - Hospital Course Hospital Course: is a 75 year old male pt of mine from [facility] with CAD, DM, afib, bladder obstruction with indwelling serrato catheter, and recent dx of colon cancer who was admitted directly by me yesterday for UTI. He had UA done during last hospitalization here (for anemia/transfusion) and it grew pseudomonas, 50-60,000 CFUs and S. aureus 10-20,000 CFUs. The pseudomonas was resistant to levaquin and cipro; pt is allergic to penicillin. I started him on IV cefepime yesterday. He left the hospital 3d ago, then early the next morning felt that his urinary catheter was clogged and he removed it himself. He urinated independently for a while then had to go to [facility] ER and have another serrato catheter placed. - Vitals & Intake/Output Vital Signs: Vital Signs Temperature 98.2 F 05/31/20 07:16 Pulse Rate 58 L 05/31/20 07:16 Respiratory Rate 17 05/31/20 07:16 Blood Pressure 126/60 05/31/20 07:16 O2 Sat by Pulse Oximetry 97 05/31/20 07:16 Intake & Output: Intake & Output 05/28/20 05/29/20 05/30/20 05/31/20 11:59 11:59 11:59 11:59 Intake Total 1313 3521 2692 Output Total 900 2000 4300 Balance 413 1521 -1608 Weight 78.2 kg - Lab Result Diagrams: 05/31/20 05:38 05/31/20 05:38 Lab Results-Last 24 Hrs: Accuchecks Accucheck Value: 85 Lab Results-Last 24 Hours 05/30/20 05/31/20 05/31/20 Range/Units 16:26 05:38 05:38 WBC 6.4 6.5 (4.0-10.5) K/mm3 RBC 2.92 L 3.09 L (4.1-5.6) M/mm3 Hgb 8.8 L 9.2 L (12.5-18.0) gm/dl Hct 27.9 L 29.1 L (42-50) % MCV 95.5 94.2 (78-100) fl MCH 30.1 29.8 (26-32) pg MCHC 31.5 L 31.6 L (32-36) g/dl RDW 15.1 H 15.0 H (11.5-14.0) % Plt Count 168 169 (150-450) K/mm3 MPV 9.7 9.8 (7.5-11.0) fl Gran % 68.6 H (36.0-66.0) % Eos # (Auto) 0.23 (0-0.5) Absolute Lymphs (auto) 1.13 (1.0-4.6) Absolute Monos (auto) 0.64 (0.0-1.3) Lymphocytes % 17.6 L (24.0-44.0) % Monocytes % 10.0 (0.0-12.0) % Eosinophils % 3.6 (0.00-5.0) % Basophils % 0.2 (0.0-0.4) % Absolute Granulocytes 4.40 (1.4-6.9) Basophils # 0.01 (0-0.4) Sodium 137 (137-145) mmol/L Potassium 4.0 (3.5-5.1) mmol/L Chloride 107 (98-107) mmol/L Carbon Dioxide 25 (22-30) mmol/L Anion Gap 8.7 (5-15) MEQ/L BUN 19 (9-20) mg/dL Creatinine 1.28 H (0.66-1.25) mg/dL Estimated GFR 58.1 ML/MIN Glucose 95 (74-106) mg/dL Calcium 8.8 (8.4-10.2) mg/dL Micro Results-Entire Visit: Accuchecks Accucheck Value: 85 Final Diagnosis/Problem List - Final Discharge Diagnosis/Problem (1) UTI (urinary tract infection) Current Visit: Yes Status: Acute Assessment & Plan: Patient reports that he has had Serrato cath for about 6 weeks now. He reports that he was having pain with the serrato a few days ago and removed the catheter. Patient reports he is doing much better since it was replaced. He denies any current issues at this time. He is on day 4 of antibiotics. This should complete the course for him. He is scheduled to have bowel surgery on mon. He will be discharged today and will need to follow up with PCP following his other surg jaydon. Code(s): N39.0 - URINARY TRACT INFECTION, SITE NOT SPECIFIED (2) Atrial flutter with rapid ventricular response Current Visit: No Status: Acute Assessment & Plan: Patient has been rate controlled this admission. Will continue on his routine cardiac meds. Code(s): I48.92 - UNSPECIFIED ATRIAL FLUTTER (3) Hematochezia Current Visit: No Status: Acute Assessment & Plan: Patient is scheduled to have bowel surgery on Mon. Hopefully this will be resol gideon following surgery. Code(s): K92.1 - MELENA (4) Anemia Current Visit: No Status: Chronic Assessment & Plan: Likely related to GI blood loss. Will continue to monitor as outpatient and address as necessary. Again patient is scheduled for surgery on Mon Code(s): D64.9 - ANEMIA, UNSPECIFIED (5) Colon cancer Current Visit: No Status: Chronic (6) Diabetes Current Visit: No Status: Chronic Assessment & Plan: Will continue with routine home medications. Code(s): E11.9 - TYPE 2 DIABETES MELLITUS WITHOUT COMPLICATIONS - Discharge Disposition: Home, Self-Care Condition: Stable Prescriptions: Continue glipiZIDE [Glipizide] 10 mg PO BID Simvastatin 20 mg PO HS Omeprazole 20 mg PO DAILY Metformin HCl 500 mg PO HS Allopurinol 100 mg [Zyloprim 100 mg] 100 mg PO DAILY Metoprolol Succinate 25 mg Xl* [Toprol-Xl 25MG Tablets] 50 mg PO DAILY Apixaban [Eliquis] 5 mg PO BID Gabapentin 300 mg PO BID Furosemide [Lasix] 10 mg PO 3XW Metformin HCl 1,000 mg PO DAILY Additional Instructions: Patient will follow instructions per surgeon about holding his eliquis Follow up with: MADELINE GARRISON [Primary Care Provider] - 1 Week
[2020-05-31 11:31] VITALS: BP 156/71; PULSE 74; O2SAT 98
== END 2020-05-31 11:23 | disposition home or self-care (01) | DRG 690 ==
LOC: MED SURG 09:25 → OBSVTOIN 05-29 09:25
PROVIDERS: ADMIT Family Medicine; ATTEND Family Medicine
DX: N39.0 Urinary tract infection, site not specified (principal); I48.92 Unspecified atrial flutter; K92.1 Melena; C18.9 Malignant neoplasm of colon, unspecified; B96.5 Pseudomonas (aeruginosa) (mallei) (pseudomallei) as the cause of diseases classified elsewhere; E11.9 Type 2 diabetes mellitus without complications; D64.9 Anemia, unspecified; R10.9 Unspecified abdominal pain; I10 Essential (primary) hypertension; R53.1 Weakness; I25.10 Atherosclerotic heart disease of native coronary artery without angina pectoris; Z95.1 Presence of aortocoronary bypass graft; Z79.01 Long term (current) use of anticoagulants; Z79.899 Other long term (current) drug therapy
CPT/HCPCS: 36415; 80048; 80053; 82962; 83036; 85025; 85027; G0378; J0692; A9270-GY